=== PATIENT | female | born 1945 | race Caucasian/White ===

== ENCOUNTER 2023-01-06 12:26 | Emergency (ER) | payer MEDICARE, OTHER, SELFPAY ==
--- NOTE | ~2023-01-06 | CT_ITS ---
EXAMINATION: CT HEAD WITHOUT CONTRAST CT CERVICAL SPINE WITHOUT CONTRAST CLINICAL INFORMATION: Head trauma. Hematoma. COMPARISON: None available. TECHNIQUE: Contiguous axial imaging was performed from the skull base to vertex without intravenous administration of contrast. Contiguous axial imaging was performed from the upper chest through the skull base without intravenous administration of contrast. Coronal and sagittal reformats were obtained at the acquisition workstation. This CT examination was performed using dose optimization techniques as appropriate, variously including the following: *Automated exposure control. *Adjustment of mA and/or kV according to patient size (this includes techniques or standardized protocols for targeted exams where dose is matched to indication/reason for exam; i.e. extremities or head). *Use of iterative reconstruction technique. DLP: 962 mGy-cm FINDINGS: Head: There is no evidence of acute intracranial hemorrhage or edematous territorial infarction. Pimentel-white matter differentiation is preserved. Confluent hypoattenuation in the periventricular and deep white matter. Proportional prominence of the ventricles and sulcal spaces without evidence of obstructive hydrocephalus. No abnormal mass effect or midline shift. No extra-axial fluid collections. Calcific atherosclerotic disease of the intracranial internal carotid arteries. No hyperdense vessel sign. There is a 1.4 cm soft tissue hematoma along the left aspect of the frontal bone and left supraorbital ridge. No associated acute osseous abnormalities. The mastoid air cells and visualized paranasal sinuses are clear. Moderate degenerative arthropathy of the temporomandibular joints. Bilateral lens extractions. Cervical Spine: Moderate retrosubluxation of C2 with respect to the skull base with 0.3 cm basilar invagination. The atlantooccipital articulations remain well aligned. Chronic appearing advanced degeneration of the left atlantoaxial articulation. Mild rightward translation of atlas on the axis. Moderate to advanced degenerative arthropathy of the atlantodental articulation. Moderate degenerative anterolisthesis of C2 on C3. Moderate degenerative stepwise retrolistheses of C3-C6. Moderate degenerative stepwise anterolistheses from T1-T3. No evidence of acute fracture or traumatic subluxation. The vertebral body heights are well-maintained. Advanced degenerative disc disease from C2-T2. Mild stenosis of the foramen magnum. There appears to at least moderate spinal canal stenoses from C1-C7. Facet and uncovertebral joint arthropathy leads osseous encroachment on the neural foramina from C2-T2. There is no prevertebral soft tissue swelling. The thyroid gland and remaining cervical soft tissues are within normal limits. The lung apices demonstrate no abnormalities. Partially visualized posterior fusion hardware of the thoracic spine. CT/CT cervical spine wo IV con IMPRESSION: 1. No evidence of acute intracranial hemorrhage or edematous territorial infarction. 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 2. No evidence of acute fracture or traumatic subluxation of the cervical spine. 3. Advanced multilevel degenerative spondyloarthropathy of the cervical spine as described in detail above. Most notably on this limited exam without intrathecal contrast, there appears to be at least moderate spinal canal stenoses from C1-C7. 4. Small moderate left frontal scalp hematoma without associated osseous abnormalities.
[2023-01-06 12:34] VITALS: BP 130/64; BP 133/66; PULSE 78; PULSE 81; RESP 16; TEMP 36.8; O2SAT 96; O2SAT 99; BMI 24.9
[2023-01-06 12:44] VITALS: BP 130/64; PULSE 86
--- NOTE | 2023-01-06 12:46 | ED_ITS ---
HPI - Fall General Chief Complaint: Fall Stated Complaint: DIZZY W/FALL,BUMP L FOREHEAD,+CCOLLAR Time Seen by Provider: 01/06/23 12:35 Source: patient and EMS Mode of arrival: EMS Limitations: altered mental status History of Present Illness HPI Narrative: witnessed trip and fall in a parking lot, no LOC, no on blood thinners complaint: fall Onset (ago): minute(s) Fall from: standing Fall witnessed: yes, by family Place fall occurred: street Loss of consciousness: none Prolonged down time: no Context: tripped/slipped Related Data Allergies Allergy/AdvReac Type Severity Reaction Status Date / Time No Known Allergies Allergy Verified 01/06/23 12:43 Review of Systems Review of Systems: Yes all other systems are reviewed and are negative Neurologic: Denies Sensory deficit (Neuro) [facility] Social History Social History Alcohol intake: current Alcohol intake frequency: a few times a week Smoked in Last 30 Days: No Use of substances other than those prescribed or required for medical reasons: No Advance Directives: No Advance Directives Information Provided: Yes Physical Exam Vital Signs: Vital Signs: Last Vital Signs Temp 97.9 F 01/06/23 15:07 Pulse 70 01/06/23 15:07 Resp 16 01/06/23 15:07 BP 137/62 01/06/23 15:07 Pulse Ox 99 01/06/23 15:07 O2 Del Method Room Air 01/06/23 15:07 BMI result Body Mass Index 24.9 Const: Other: large left frontal hematoma with laceration Nutritional Appearance: average body habitus Orientation/consciousness: oriented to person Limitations: no limitations HEENT: Head: Yes normal to inspection Ears: external ears normal General nose exam: Normal external nose present Mouth: Normal oral and palatal mucosa present and oropharynx normal Throat: Yes posterior oropharynx normal Eyes: General: appearance normal, both eyes and all related structures Neck: Other: supple Neck: Yes normal visual inspection Chest: Chest palpation & inspection: normal inspection of the chest Resp: Auscultation: clear to auscultation bilaterally Cardio: Jugular venous distension: no JVD Rate: regular rate Rhythm: regular rhythm Heart sounds: S1 normal heart sound present and S2 normal heart sound present GI: Inspection: Yes normal to inspection Palpation (GI): Soft to palpation, nontender and No hepatosplenomegaly present Auscultation: normal bowel sounds : General: Yes no CVA tenderness Back/Spine/Pelvis: Back: no CVA tenderness Skin: Other: stellate laceration left frontal area complex Neuro: General: oriented to person Cranial nerves: Yes CN's II-XII intact bilaterally Motor exam (neuro): 5/5 motor strength present throughout Sensory Exam: No Sensory deficit (Neuro) Extrem: General: Yes normal to inspection Psych: Other: patient is pleasant with advanced dementia Course Reevaluation(s) Reevaluation #1: patient with no bleed or cspine fracture will dc home Time: 15:47 Medications Administered Discontinued Medications Generic Name Dose Route Start Last Admin Trade Name Freq PRN Reason Stop Dose Admin Diphtheria/Tetanus/Acell Pertussis 0.5 ml 01/06/23 12:52 01/06/23 13:47 Diphth,Pertus(Acell),Tet Adult 0.5 Ml Syringe IM 01/06/23 12:53 0.5 ml .ONCE ONE Administration Lidocaine/Epinephrine 10 ml 01/06/23 15:14 01/06/23 15:25 Lidocaine Hcl 1%/Epi 1:100,000 10 Ml Vial SUBCUT 01/06/23 15:15 10 ml ONCE ONE Administration Procedures Procedure Narrative Procedure Narrative: Patient prepped and draped in sterile fashion, 1% lidocaine with epi used for anesthesia, wound irrigated under pressure with saline, closed with 6-0 nylon x 6. Patient tolerated procedure well. Medical Decision Making Differential Diagnosis Differential Diagnoses: The differential diagnosis associated with the presentation includes (cerebral bleed, cervical fracture, facial laceration) Admission/Observation Consideration of admission/observation: Escalation of care including ad mission/observation considered (upon arrival patient was considered for admission) Lab Data MDM Lab Attestation statement: I reviewed the patient's lab results. (slight anemia was noted) 01/06/23 13:45 01/06/23 13:45 Labs: Lab Results 01/06/23 01/06/23 Range/Units 13:45 13:45 WBC 8.6 (4.8-10.8) X10*3/uL RBC 3.21 L (4.20-5.50) X10*6/uL Hgb 10.6 L (12.0-16.0) g/dl Hct 32.6 L (37.0-47.0) % MCV 101.6 H (80.0-98.0) fL MCH 33.0 (27.0-33.0) pg MCHC 32.5 (31.0-35.0) g/dl RDW 12.7 (11.0-16.0) % Plt Count 293 (160-400) X10*3/uL MPV 10.7 (9.4-12.3) fL Immature Gran % (Auto) 0.2 (0.0-0.4) % Neut % (Auto) 60.2 (45-73) % Lymph % (Auto) 26.5 (20-40) % [place] % (Auto) 8.2 (2-11) % Eos % (Auto) 3.5 (0-4) % Baso % (Auto) 1.4 (0-2) % Lymph # (Auto) 2.3 (1.2-4.9) X10*3/uL [place] # (Auto) 0.7 (0.1-1.2) X10*3/uL Eos # (Auto) 0.3 (0.0-0.4) X10*3/uL Baso # (Auto) 0.1 (0.0-0.2) X10*3/uL Abs Immat Gran (auto) 0.02 (0.00-0.03) X10*3/uL Absolute Neuts (auto) 5.1 (2.0-8.3) x10*3/uL Absolute Nucleated RBC 0.000 (0.0-0.012) X10*3/uL Nucleated RBC % (auto) 0.0 (0.0-0.2) /100WBC Sodium 140 (135-145) mmol/L Potassium 5.0 (3.3-5.1) mmol/L Chloride 108 (96-108) mmol/L Carbon Dioxide 26 (22-29) mmol/L Anion Gap 11 L (12-20) BUN 22 H (9-16) mg/dL Creatinine 1.09 (0.5-1.4) mg/dL Estim Creat Clear Calc 38.3 Estimated GFR 49 Random Glucose 89 (60-115) mg/dL Calcium 9.3 (8.4-10.2) mg/dL Independent Interpretation I performed an independent interpretation of an: CT Scan (brain: no bleed Cervical: question of fracture and degenerative disease) Radiology Impression Discussion of test interpretation with radiology: I have reviewed the rad iologist's reading. (cervical: there is no fracture just djd) Independent Historian Clinical information obtained from an independent historian. History obtained f rom or confirmed by: Friend and EMS Tests considered The following testing was considered but not selected: CT of chest and abdomen was considered but there was no evidence of chest pain or abdominal pain Prescription Management I considered prescription management with: Pain Medication (considered narcotics but patient with advanced dementia) Chronic Conditions Patient?s care impacted by: Other (dementia) Discharge Plan Discharge Clinical Impression: Contusion of head, Facial laceration Patient Disposition: Home, Self-Care Instructions: Laceration (ED) Additional Instructions: suture removal in 5 days Referrals: Dorita Rosario MD [Primary Care Provider] - 5 days
[2023-01-06] MEDS: Diphth,Pertus(ACell),Tet Adult 0.5 ML SYRINGE IM (13:47)
[2023-01-06 13:49] LABS: MANUAL DIFF FLAG NO
[2023-01-06 13:52] LABS: Basophils Absolute Auto 0.1 X10*3/uL (0.0-0.2); Basophils Percent Auto 1.4 % (0-2); Eosinophils Absolute Auto 0.3 X10*3/uL (0.0-0.4); Eosinophils Percent Auto 3.5 % (0-4); Hematocrit 32.6 % (37.0-47.0); Hemoglobin 10.6 g/dl (12.0-16.0); Imm Gran Abs Auto 0.02 X10*3/uL (0.00-0.03); Imm Gran Pct Auto 0.2 % (0.0-0.4); Lymphocytes Absolute Auto 2.3 X10*3/uL (1.2-4.9); Lymphocytes Percent Auto 26.5 % (20-40); Mean Corpuscular HGB Conc 32.5 g/dl (31.0-35.0); Mean Corpuscular Volume 101.6 fL (80.0-98.0); Mean Platelet Volume 10.7 fL (9.4-12.3); Monocytes Absolute Auto 0.7 X10*3/uL (0.1-1.2); Monocytes Percent Auto 8.2 % (2-11); Neutrophils Absolute Auto 5.1 x10*3/uL (2.0-8.3); Neutrophils Percent Auto 60.2 % (45-73); Platelet Count 293 X10*3/uL (160-400); Red Blood Count 3.21 X10*6/uL (4.20-5.50); Red Cell Distribution Width 12.7 % (11.0-16.0); White Blood Count 8.6 X10*3/uL (4.8-10.8)
[2023-01-06 14:03] LABS: Anion Gap 11 (12-20); Blood Urea Nitrogen 22 mg/dL (9-16); Calcium 9.3 mg/dL (8.4-10.2); Carbon Dioxide 26 mmol/L (22-29); Chloride 108 mmol/L (96-108); Creatinine Clr Calc Pharmacy 38.3; Estimated Glomerular Filt Rate 49; Glucose Random 89 mg/dL (60-115); Sodium 140 mmol/L (135-145)
[2023-01-06 15:07] VITALS: BP 137/62; PULSE 70; RESP 16; TEMP 36.6; O2SAT 99
[2023-01-06] MEDS: Lidocaine HCl 1%/Epi 1:100,000 10 ML VIAL SUBCUT (15:25)
== END 2023-01-06 16:42 | disposition home or self-care (01) ==
PROVIDERS: Emergency Provider Emergency Medicine; PCP Internal Medicine
DX: S01.81XA Laceration without foreign body of other part of head, initial encounter (principal); S00.83XA Contusion of other part of head, initial encounter; W01.0XXA Fall on same level from slipping, tripping and stumbling without subsequent striking against object, initial encounter; Y93.01 Activity, walking, marching and hiking; Y92.481 Parking lot as the place of occurrence of the external cause; Y99.9 Unspecified external cause status
CPT/HCPCS: 12011; 36415; 70450; 72125; 80048; 85025; 90471; 90715; 99284

== ENCOUNTER 2023-01-16 20:23 | Observation (INO) | payer MEDICARE, OTHER, SELFPAY ==
--- NOTE | ~2023-01-16 | CT_ITS ---
EXAMINATION: CT HEAD WITHOUT CONTRAST CLINICAL INFORMATION: Confusion. Acute mental status change. Word finding difficulties. COMPARISON: Previous head CT 01/06/2023 TECHNIQUE: Contiguous axial imaging was performed from the skull base to vertex without intravenous administration of contrast. This CT examination was performed using dose optimization techniques as appropriate, variously including the following: *Automated exposure control *Adjustment of mA and/or kV according to patient size (this includes techniques or standardized protocols for targeted exams where dose is matched to indication/reason for exam; i.e. extremities or head) *Use of iterative reconstruction technique DLP: 664 mGy-cm FINDINGS: There is no evidence for an extra axial collection. There is no evidence of intra-axial or extra-axial hemorrhage. The ventricles and extra-axial CSF spaces are prominent suggestive of generalized atrophy. There is nonspecific periventricular white matter disease. No mass, mass effect or infarct. No skull fracture. Degenerative changes at the temporomandibular joints. Interval decrease in size in the scalp hematoma over the left frontal bone and superior left orbit. CT/CT head/brain wo IV con IMPRESSION: No acute findings. Generalized atrophy and nonspecific periventricular white matter disease.
--- NOTE | ~2023-01-16 | XR_ITS ---
EXAMINATION: XR ABDOMEN KUB CLINICAL INDICATION: MRI screening COMPARISON: None available. TECHNIQUE: AP view of the abdomen. FINDINGS: Postsurgical changes to the lumbar spine with posterior rods and interpedicular screws from L2 to L5 and laminectomy. Right hip replacement. Degenerative changes of the spine and left hip joint. Normal bowel gas pattern. No free air. No soft tissue calcifications. Question old trauma to the left iliac crest. XR/XR abdomen 1V IMPRESSION: Postsurgical changes to the lumbar spine from L2 to L5 and right hip replacement.
--- NOTE | ~2023-01-16 | MR_ITS ---
EXAMINATION: MR BRAIN WITHOUT CONTRAST CLINICAL INFORMATION: Evaluate for stroke. Acute mental status change. COMPARISON: Head CT dated 01/16/2023. TECHNIQUE: Multiplanar, multisequence imaging of the brain was performed without contrast. FINDINGS: No diffusion abnormalities are identified to suggest an acute infarct. No mass effect or midline shift is seen. Moderate chronic white matter microangiopathy noted with moderate diffuse brain parenchymal volume loss and ex vacuo dilatation of the ventricles. No extra-axial fluid collections are seen. There is a small chronic lacunar infarct in the left cerebellar hemisphere. Mild chronic small vessel ischemic changes noted in the amy. The gradient refocused acquisition demonstrates no pathologic magnetic susceptibility artifact to indicate underlying acute or chronic blood products. The craniovertebral junction, marrow signal, and midline structures are normal. The major intracranial flow voids at the level of the [place] are preserved. The dural venous sinus flow voids are maintained. The mastoid air cells and paranasal sinuses are well aerated. There is a reversal of the normal cervical lordosis with significant multilevel spondylosis and hypertrophic facet arthropathy visible on the sagittal T1 FLAIR-weighted acquisition. Advanced degenerative changes evident at the C1-C2 level. Findings also better evaluated on a CT study from 01/06/2023. MR/MR head/brain wo con IMPRESSION: Limited study with motion artifacts. No acute intracranial process. Moderate chronic white matter microangiopathy and moderate diffuse brain parenchymal volume loss.
--- NOTE | ~2023-01-16 | XR_ITS ---
EXAMINATION: XR CHEST CLINICAL INFORMATION: Acute confusion COMPARISON: None available. TECHNIQUE: Frontal view of the chest was obtained. FINDINGS: The cardiac and mediastinal contours are unremarkable. There is round increased opacity over the left lateral mid chest and chest wall. This may be related to breast prosthesis is a projects outside the wall into the soft tissues. The lungs are otherwise clear. No pleural effusion or pneumothorax. Degenerative changes of the thoracic spine. Postsurgical changes of the lumbar spine. Surgical clips in the left breast/axilla. Old left rib fractures. XR/XR chest 1V IMPRESSION: No evidence for acute disease in the chest.
[2023-01-16 20:31] VITALS: BP 110/72; PULSE 86; RESP 18; TEMP 37.2; O2SAT 99; BMI 23.3
--- NOTE | 2023-01-16 20:38 | ECG_ITS ---
Test Reason : AMS Blood Pressure : / mmHG Vent. Rate : 088 BPM Atrial Rate : 088 BPM P-R Int : 188 ms QRS Dur : 096 ms QT Int : 372 ms P-R-T Axes : 071 045 051 degrees QTc Int : 450 ms Normal sinus rhythm with sinus arrhythmia Cannot rule out Anterior infarct , age undetermined Abnormal ECG No previous ECGs available Referred By: Nikita Pete Electronically Signed By:JOSUE MCDONOUGH
[2023-01-16 20:41] LABS: Glucose, Whole Blood 85 mg/dL (60-115)
--- NOTE | 2023-01-16 21:20 | ED.AMS ---
HPI - Altered Mental Status General Chief Complaint: Altered Mental Status Stated Complaint: STROKE ALERT Time Seen by Provider: 01/16/23 20:37 Source: EMS Mode of arrival: EMS Limitations: altered mental status History of Present Illness HPI narrative: 77-year-old female presents for mental status changes. Changes include confusion, difficulty speaking. Patient was diagnosed with urinary tract infection earlier today. She has also had multiple falls within the past week including head injury. About a week ago she did have a head injury and had a CT scan which was reportedly negative. She has significant bruising noted. Patient denies any headache, nausea, vomiting. There have been no reports of fevers or chills. Patient is not on any blood thinning medications. Patient was last seen normal this morning at approximately 9:00 a.m.. Patient has no reported history of similar findings. Her symptoms are described as severe. There is no clear relieving or exacerbating features. Related Data Allergies Allergy/AdvReac Type Severity Reaction Status Date / Time No Known Allergies Allergy Verified 01/06/23 12:43 Review of Systems Review of Systems: CONSTITUTIONAL: Denies weight loss, fever and chills. HEENT: Denies changes in vision and hearing. RESPIRATORY: Denies SOB and cough. CV: Denies palpitations no CP. GI: Denies abdominal pain, nausea, vomiting and diarrhea. : Denies dysuria and urinary frequency. MSK: Denies myalgia and joint pain. SKIN: Denies rash and pruritus. NEUROLOGICAL: Denies headache and syncope. PSYCHIATRIC: Denies recent changes in mood. Denies anxiety and depression. All other ROS are negative unless in HPI PMFSH Social History Social History Alcohol intake: never Smoked in Last 30 Days: No Use of substances other than those prescribed or required for medical reasons: No Advance Directives: No Advance Directives Information Provided: No Physical Exam ED Vital Signs: Vital Signs - 24 hr 01/16/23 20:31 Temperature 98.9 F Pulse Rate 86 Respiratory Rate 18 Blood Pressure 110/72 Pulse Oximetry 99 Oxygen Delivery Method Room Air BMI result Body Mass Index 23.3 GEN: Well developed, no acute distress, alert, oriented x1 HEENT: Normocephalic, significant facial ecchymoses, normal external ears, nose appears normal, no oropharyngeal edema or exudates Eyes: Normal to appearance Neck: Supple, no lymphadenopathy Respiratory: Talks in complete sentences, no respiratory distress, clear to auscultation bilaterally Cardiovascular: Regular rate and rhythm, no murmurs rubs or gallops Abdomen: Soft, nontender, nondistended, no guarding, no rebound Back: No CVA tenderness Extremities: No clubbing cyanosis or edema Neurologic: No focal neurologic deficits, cranial nerves 2-12 intact, strength is 5/5 bilaterally Skin: No rash NIH Stroke Scale Internal: Initial- Upon Arrival Time: 21:54 Level of Consciousness: Alert Level of Consciousness Questions: Answers both questions correctly Level of Consciousness Commands: Performs both tasks correctly Best Gaze: Normal Visual: No visual loss Facial Palsy: Normal Motor Arm (Right): No drift Motor Arm (Left): No drift Motor Leg (Right): No drift Motor Leg (Left): No drift Limb Ataxia: Absent Sensory: Normal Best Language: Mild to moderate aphasia Dysarthia: Normal Extinction and Inattention: No abnormality Score: 1 Course Course Course Narrative: Workup is complete. Etiology of patient's confusion is not entirely clear. She has no evidence of dysarthria. She does not appear to have any word-finding difficulty but remains confused, tremulous and able to follow some commands. Will admit the patient. I did attempt to contact family however there are no family numbers on file here. There is no family in patient room Medical Decision Making Medical Decision Making MDM Narrative: 77-year-old female presents with confusion and word-finding difficulties. Patient has significant facial ecchymoses on exam. Patient has no focal weakness. She does appear to either have confusion with speaking or word-finding difficulties. Is unclear which it is. She does not have any dysarthria. She is able to follow commands. She has no pronator drift. Patient is outside the window for tPA Differential Diagnosis Differential Diagnoses: The differential diagnosis associated with the presentation includes (Stroke, confusion, sepsis, infection, intoxication) Admission/Observation Consideration of admission/observation: Escalation of care including admission/observation considered Consult Healthcare Provider Management of the patient was discussed with: Hospitalist Lab Data [facility] Lab Attestation statement: I reviewed the patient's lab results. 01/16/23 20:55 01/16/23 20:55 Labs: Lab Results 01/16/23 01/16/23 01/16/23 Range/Units 20:30 20:55 20:55 WBC 7.4 (4.8-10.8) X10*3/uL RBC 3.25 L (4.20-5.50) X10*6/uL Hgb 10.7 L (12.0-16.0) g/dl Hct 32.0 L (37.0-47.0) % MCV 98.5 H (80.0-98.0) fL MCH 32.9 (27.0-33.0) pg MCHC 33.4 (31.0-35.0) g/dl RDW 13.2 (11.0-16.0) % Plt Count 277 (160-400) X10*3/uL MPV 10.6 (9.4-12.3) fL Immature Gran % (Auto) 0.3 (0.0-0.4) % Neut % (Auto) 54.4 (45-73) % Lymph % (Auto) 31.1 (20-40) % [place] % (Auto) 9.2 (2-11) % Eos % (Auto) 4.3 H (0-4) % Baso % (Auto) 0.7 (0-2) % Lymph # (Auto) 2.3 (1.2-4.9) X10*3/uL [place] # (Auto) 0.7 (0.1-1.2) X10*3/uL Eos # (Auto) 0.3 (0.0-0.4) X10*3/uL Baso # (Auto) 0.1 (0.0-0.2) X10*3/uL Abs Immat Gran (auto) 0.02 (0.00-0.03) X10*3/uL Absolute Neuts (auto) 4.0 (2.0-8.3) x10*3/uL Absolute Nucleated RBC 0.000 (0.0-0.012) X10*3/uL Nucleated RBC % (auto) 0.0 (0.0-0.2) /100WBC PT 10.2 L (11.1-13.3) SEC INR 0.8 L (0.9-1.1) APTT 29.1 (26.0-36.4) SEC Sodium (135-145) mmol/L Potassium (3.3-5.1) mmol/L Chloride (96-108) mmol/L Carbon Dioxide (22-29) mmol/L Anion Gap (12-20) BUN (9-16) mg/dL Creatinine (0.5-1.4) mg/dL Estim Creat Clear Calc Estimated GFR POC Glucose 85 (60-115) mg/dL Random Glucose (60-115) mg/dL Lactic Acid (0.5-2.0) mmol/L Calcium (8.4-10.2) mg/dL Total Bilirubin (0.0-1.0) mg/dL AST (5-31) U/L ALT (0-31) U/L Alkaline Phosphatase (39-117) U/L Total Protein (6.5-8.0) g/dL Albumin (3.5-5.0) g/dL TSH (0.32-4.0) uIU/mL Urine Color Urine Appearance Urine pH (5.0-9.0) Ur Specific [place] (1.005-1.025) Urine Protein (Neg-Trace) mg/dL Urine Glucose (UA) (Negative) mg/dL Urine Ketones (Negative) mg/dL Urine Blood (Negative) Urine Nitrite (Negative) Ur Leukocyte Esterase (Negative) Urine RBC (0-2) /HPF Urine WBC (0-5) /HPF Ur Squamous Epith Cells (0-2) /HPF Urine Bacteria (None Seen) Hyaline Casts (0-2) /LPF Urine Opiates Screen (Not Detect) Urine Fentanyl Screen (Not Detect) Ur Barbiturates Screen (Not Detect) Ur Phencyclidine Scrn (Not Detect) Ur Amphetamines Screen (Not Detect) U Benzodiazepines Scrn (Not Detect) Urine Cocaine Screen (Not Detect) U Marijuana (THC) Screen (Not Detect) Ethyl Alcohol mg/dL COVID-19 ([facility]) (Negative) COVID-19 Clin Com 01/16/23 01/16/23 01/16/23 Range/Units 20:55 20:55 20:55 WBC (4.8-10.8) X10*3/uL RBC (4.20-5.50) X10*6/uL Hgb (12.0-16.0) g/dl Hct (37.0-47.0) % MCV (80.0-98.0) fL MCH (27.0-33.0) pg MCHC (31.0-35.0) g/dl RDW (11.0-16.0) % Plt Count (160-400) X10*3/uL MPV (9.4-12.3) fL Immature Gran % (Auto) (0.0-0.4) % Neut % (Auto) (45-73) % Lymph % (Auto) (20-40) % [place] % (Auto) (2-11) % Eos % (Auto) (0-4) % Baso % (Auto) (0-2) % Lymph # (Auto) (1.2-4.9) X10*3/uL [place] # (Auto) (0.1-1.2) X10*3/uL Eos # (Auto) (0.0-0.4) X10*3/uL Baso # (Auto) (0.0-0.2) X10*3/uL Abs Immat Gran (auto) (0.00-0.03) X10*3/uL Absolute Neuts (auto) (2.0-8.3) x10*3/uL Absolute Nucleated RBC (0.0-0.012) X10*3/uL Nucleated RBC % (auto) (0.0-0.2) /100WBC PT (11.1-13.3) SEC INR (0.9-1.1) APTT (26.0-36.4) SEC Sodium 137 (135-145) mmol/L Potassium 4.9 (3.3-5.1) mmol/L Chloride 105 (96-108) mmol/L Carbon Dioxide 20 L (22-29) mmol/L Anion Gap 17 (12-20) BUN 32 H (9-16) mg/dL Creatinine 1.46 H (0.5-1.4) mg/dL Estim Creat Clear Calc 28.6 Estimated GFR 35 POC Glucose (60-115) mg/dL Random Glucose 80 (60-115) mg/dL Lactic Acid 1.1 (0.5-2.0) mmol/L Calcium 9.4 (8.4-10.2) mg/dL Total Bilirubin 0.2 (0.0-1.0) mg/dL AST 22 (5-31) U/L ALT 13 (0-31) U/L Alkaline Phosphatase 94 (39-117) U/L Total Protein 6.9 (6.5-8.0) g/dL Albumin 4.1 (3.5-5.0) g/dL TSH 0.09 L (0.32-4.0) uIU/mL Urine Color Urine Appearance Urine pH (5.0-9.0) Ur Specific [place] (1.005-1.025) Urine Protein (Neg-Trace) mg/dL Urine Glucose (UA) (Negative) mg/dL Urine Ketones (Negative) mg/dL Urine Blood (Negative) Urine Nitrite (Negative) Ur Leukocyte Esterase (Negative) Urine RBC (0-2) /HPF Urine WBC (0-5) /HPF Ur Squamous Epith Cells (0-2) /HPF Urine Bacteria (None Seen) Hyaline Casts (0-2) /LPF Urine Opiates Screen (Not Detect) Urine Fentanyl Screen (Not Detect) Ur Barbiturates Screen (Not Detect) Ur Phencyclidine Scrn (Not Detect) Ur Amphetamines Screen (Not Detect) U Benzodiazepines Scrn (Not Detect) Urine Cocaine Screen (Not Detect) U Marijuana (THC) Screen (Not Detect) Ethyl Alcohol < 10 mg/dL COVID-19 ([place]) Negative (Negative) COVID-19 Clin Com See Note 01/16/23 01/16/23 Range/Units 20:55 20:55 WBC (4.8-10.8) X10*3/uL RBC (4.20-5.50) X10*6/uL Hgb (12.0-16.0) g/dl Hct (37.0-47.0) % MCV (80.0-98.0) fL MCH (27.0-33.0) pg MCHC (31.0-35.0) g/dl RDW (11.0-16.0) % Plt Count (160-400) X10*3/uL MPV (9.4-12.3) fL Immature Gran % (Auto) (0.0-0.4) % Neut % (Auto) (45-73) % Lymph % (Auto) (20-40) % [place] % (Auto) (2-11) % Eos % (Auto) (0-4) % Baso % (Auto) (0-2) % Lymph # (Auto) (1.2-4.9) X10*3/uL [place] # (Auto) (0.1-1.2) X10*3/uL Eos # (Auto) (0.0-0.4) X10*3/uL Baso # (Auto) (0.0-0.2) X10*3/uL Abs Immat Gran (auto) (0.00-0.03) X10*3/uL Absolute Neuts (auto) (2.0-8.3) x10*3/uL Absolute Nucleated RBC (0.0-0.012) X10*3/uL Nucleated RBC % (auto) (0.0-0.2) /100WBC PT (11.1-13.3) SEC INR (0.9-1.1) APTT (26.0-36.4) SEC Sodium (135-145) mmol/L Potassium (3.3-5.1) mmol/L Chloride (96-108) mmol/L Carbon Dioxide (22-29) mmol/L Anion Gap (12-20) BUN (9-16) mg/dL Creatinine (0.5-1.4) mg/dL Estim Creat Clear Calc Estimated GFR POC Glucose (60-115) mg/dL Random Glucose (60-115) mg/dL Lactic Acid (0.5-2.0) mmol/L Calcium (8.4-10.2) mg/dL Total Bilirubin (0.0-1.0) mg/dL AST (5-31) U/L ALT (0-31) U/L Alkaline Phosphatase (39-117) U/L Total Protein (6.5-8.0) g/dL Albumin (3.5-5.0) g/dL TSH (0.32-4.0) uIU/mL Urine Color Dark Yellow Urine Appearance Clear Urine pH 5.5 (5.0-9.0) Ur Specific [place] >= 1.030 H (1.005-1.025) Urine Protein Negative (Neg-Trace) mg/dL Urine Glucose (UA) Negative (Negative) mg/dL Urine Ketones Trace (Negative) mg/dL Urine Blood Negative (Negative) Urine Nitrite Negative (Negative) Ur Leukocyte Esterase Trace H (Negative) Urine RBC 0-2 (0-2) /HPF Urine WBC 0-5 (0-5) /HPF Ur Squamous Epith Cells 6-10 (0-2) /HPF Urine Bacteria None Seen (None Seen) Hyaline Casts >20 (0-2) /LPF Urine Opiates Screen Not Detected (Not Detect) Urine Fentanyl Screen Not Detected (Not Detect) Ur Barbiturates Screen Not Detected (Not Detect) Ur Phencyclidine Scrn Not Detected (Not Detect) Ur Amphetamines Screen Not Detected (Not Detect) U Benzodiazepines Scrn Not Detected (Not Detect) Urine Cocaine Screen Not Detected (Not Detect) U Marijuana (THC) Screen Not Detected (Not Detect) Ethyl Alcohol mg/dL COVID-19 ([facility]) (Negative) COVID-19 Clin Com Independent Interpretation I performed an independent interpretation of an: EKG (NSR, normal intervals, No STEMI), Plain X-Ray (Chest: No acute cardiopulmonary disease) and CT Scan (Head: NAD) Radiology Impression Discussion of test interpretation with radiology: I have reviewed the radiologist's reading. Radiologist Impression: XR/XR chest 1V IMPRESSION: No evidence for acute disease in the chest. ? Dictated By: Anna Merino MD Signed By: <Electronically signed by Anna Merino MD in OV> 01/16/23 [id number] Independent Historian Clinical information obtained from an independent historian. History obtained from or confirmed by: EMS Prescription Management I considered prescription management with: Antibiotic Discharge Plan Discharge Clinical Impression: Altered mental status Patient Disposition: Still a Patient
[2023-01-16 21:22] LABS: MANUAL DIFF FLAG NO
[2023-01-16 21:25] LABS: Basophils Absolute Auto 0.1 X10*3/uL (0.0-0.2); Basophils Percent Auto 0.7 % (0-2); Eosinophils Absolute Auto 0.3 X10*3/uL (0.0-0.4); Eosinophils Percent Auto 4.3 % (0-4); Hemoglobin 10.7 g/dl (12.0-16.0); Imm Gran Abs Auto 0.02 X10*3/uL (0.00-0.03); Imm Gran Pct Auto 0.3 % (0.0-0.4); Lymphocytes Absolute Auto 2.3 X10*3/uL (1.2-4.9); Lymphocytes Percent Auto 31.1 % (20-40); Mean Corpuscular HGB Conc 33.4 g/dl (31.0-35.0); Mean Corpuscular Hemoglobin 32.9 pg (27.0-33.0); Mean Corpuscular Volume 98.5 fL (80.0-98.0); Mean Platelet Volume 10.6 fL (9.4-12.3); Monocytes Absolute Auto 0.7 X10*3/uL (0.1-1.2); Monocytes Percent Auto 9.2 % (2-11); Neutrophils Percent Auto 54.4 % (45-73); Platelet Count 277 X10*3/uL (160-400); Red Blood Count 3.25 X10*6/uL (4.20-5.50); Red Cell Distribution Width 13.2 % (11.0-16.0); White Blood Count 7.4 X10*3/uL (4.8-10.8)
[2023-01-16 21:39] LABS: Lactic Acid 1.1 mmol/L (0.5-2.0)
[2023-01-16 21:46] LABS: INTERNATIONAL NORM RATIO 0.8 (0.9-1.1); Prothrombin Time 10.2 SEC (11.1-13.3)
[2023-01-16 21:48] LABS: Partial Thromboplastin Time 29.1 SEC (26.0-36.4)
[2023-01-16 21:49] LABS: Alanine Aminotransferase 13 U/L (0-31); Albumin Level 4.1 g/dL (3.5-5.0); Alkaline Phosphatase 94 U/L (39-117); Anion Gap 17 (12-20); Aspartate Amino Transferase 22 U/L (5-31); Bilirubin Total 0.2 mg/dL (0.0-1.0); Blood Urea Nitrogen 32 mg/dL (9-16); Calcium 9.4 mg/dL (8.4-10.2); Carbon Dioxide 20 mmol/L (22-29); Chloride 105 mmol/L (96-108); Creatinine Clr Calc Pharmacy 28.6; Estimated Glomerular Filt Rate 35; Glucose Random 80 mg/dL (60-115); Potassium 4.9 mmol/L (3.3-5.1); Sodium 137 mmol/L (135-145); Total Protein 6.9 g/dL (6.5-8.0)
[2023-01-16 21:55] LABS: COVID-19 Test Negative (Negative); IDNOW Serial# BCCEAD1C
[2023-01-16 22:04] LABS: TSH reflex Free T4 0.09 uIU/mL (0.32-4.0)
[2023-01-16 22:10] LABS: Appearance Urine Clear; Color Urine Dark Yellow; Glucose Urine UA Negative (Negative); Leukocyte Esterase Urine Trace (Negative); Nitrite Urine Negative (Negative); PH 5.5 (5.0-9.0); Specific Gravity - Urine >= 1.030 (1.005-1.025); UMIC TRIGGER UACC YES; Urine Blood Negative (Negative); Urine Ketones Trace mg/dL (Negative); Urine Protein Negative (Neg-Trace)
[2023-01-16 22:24] LABS: RBC Urine 0-2 /HPF (0-2)
[2023-01-16 22:25] LABS: Ethanol < 10 mg/dL
[2023-01-16 22:30] LABS: Amphetamine Screen Urine Not Detected (Not Detect); Bacteria Urine None Seen (None Seen); Barbiturates, Urine Not Detected (Not Detect); Benzodiazepines Screen Urine Not Detected (Not Detect); Cannabinoid Screen Urine Not Detected (Not Detect); Cocaine Screen Urine Not Detected (Not Detect); Fentanyl, urine Not Detected (Not Detect); Hyaline Casts Urine >20 /LPF (0-2); Opiate Screen Urine Not Detected (Not Detect); Phencyclidine Screen Urine Not Detected (Not Detect); WBC Urine 0-5 /HPF (0-5)
--- NOTE | 2023-01-16 22:44 | P.HPHOSP_ITS ---
History of Present Illness Date of Service: 01/16/23 Chief Complaint: Altered mentation This is a 77-year-old female with pertinent history of mood disorder, essential hypertension, hypothyroidism, gastroesophageal reflux disease who was brought to the emergency department for evaluation of altered mentation. History obtained by ER provider and chart review. Unable to obtain history from the patient. Patient presents for evaluation of confusion and word-finding difficulty. Also with multiple falls over the last 1 week. At the time of my evaluation, patient is only oriented to self. Does not know why she is here. Unable to obtain review of systems. Patient tells me that she has been having multiple episodes of loose stools. Review of Systems Review of Systems: Yes Unobtainable due to mental status PMFSH Medical History Essential hypertension GERD (gastroesophageal reflux disease) Hypothyroidism Mood disorder Pertinent family history: Unable to obtain Social History Household Members: None Housing: Correction Do you presently have visiting nurse or other home services: No Alcohol intake: never Patient Tobacco Use Status: Never used Tobacco Smoked in Last 30 Days: No Use of substances other than those prescribed or required for medical reasons: No Currently Displaying Signs/Symptoms of Drug Intoxication Withdrawal: No Have you been hit, kicked, punched, or otherwise hurt by someone within the past year? If so, by whom?: No Do you feel safe in your current relationship?: No Current Relationship Is there a partner from a previous relationship who is making you feel unsafe now?: No Advance Directives: No Advance Directives Information Provided: No Do you have thoughts of harming others: None Do you have a plan to hurt others: No Plan Recently lost weight without trying: No How much weight loss: Unsure Eating poorly because of decreased appetite: No Nutrition screen score: 2 Nutrition Risks: On aspiration precautions Patient : No Poor oral hygiene: No Meds Allergies Allergy/AdvReac Type Severity Reaction Status Date / Time No Known Allergies Allergy Verified 01/06/23 12:43 Active Medications: Current Medications Acetaminophen (Acetaminophen Supp 650 Mg Supp.Rect) 650 mg SD Q6H PRN PRN Reason: Pain, Mild (Pain Scale 1-3) Enoxaparin Sodium (Enoxaparin Sodium 30 Mg/0.3 Ml Syringe) 30 mg SUBCUT Q24H MIC Ondansetron HCl (Ondansetron Hcl 4 Mg/2 Ml Vial) 4 mg IVPUSH Q8H PRN PRN Reason: Nausea and Vomiting Sodium Chloride (0.9 % Sodium Chloride Flush 3 Ml Syringe) 3 ml IVFLUSH QSHIFT MIC Physical Exam Vital Signs and Narrative: Vital Signs: Last Vital Signs Temp 98.9 F 01/16/23 20:31 Pulse 86 01/16/23 20:31 Resp 18 01/16/23 20:31 BP 110/72 01/16/23 20:31 Pulse Ox 99 01/16/23 20:31 O2 Del Method Room Air 01/16/23 20:31 BMI result Body Mass Index 23.3 Elderly female lying in bed in no distress Neck supple, no JVD Regular rate and rhythm, S1-S2 heard Regular breath sounds bilaterally, no wheezing or crackles appreciated Abdomen soft nontender, no guarding, no rigidity Patient is awake, alert and oriented to self, disoriented to place, time and person ; intermittently following commands, no focal weakness, unable to have a conversation, word-finding difficulty/confusion present Results Labs 01/16/23 20:55 01/16/23 20:55 Labs: Laboratory Results - last 24 hr 01/16/23 01/16/23 01/16/23 20:30 20:55 20:55 MCV 98.5 H MCH 32.9 MCHC 33.4 RDW 13.2 Plt Count 277 MPV 10.6 Immature Gran % (Auto) 0.3 Neut % (Auto) 54.4 Lymph % (Auto) 31.1 Carson % (Auto) 9.2 Eos % (Auto) 4.3 H Baso % (Auto) 0.7 Lymph # (Auto) 2.3 Carson # (Auto) 0.7 Eos # (Auto) 0.3 Baso # (Auto) 0.1 Abs Immat Gran (auto) 0.02 Absolute Neuts (auto) 4.0 Absolute Nucleated RBC 0.000 Nucleated RBC % (auto) 0.0 PT 10.2 L INR 0.8 L APTT 29.1 Anion Gap Estim Creat Clear Calc Estimated GFR POC Glucose 85 Random Glucose Lactic Acid Calcium Total Bilirubin AST ALT Alkaline Phosphatase Total Protein Albumin TSH Urine Color Urine Appearance Urine pH Ur Specific [place] Urine Protein Urine Glucose (UA) Urine Ketones Urine Blood Urine Nitrite Ur Leukocyte Esterase Urine RBC Urine WBC Ur Squamous Epith Cells Urine Bacteria Hyaline Casts Urine Opiates Screen Urine Fentanyl Screen Ur Barbiturates Screen Ur Phencyclidine Scrn Ur Amphetamines Screen U Benzodiazepines Scrn Urine Cocaine Screen U Marijuana (THC) Screen Ethyl Alcohol COVID-19 ([facility]) COVID-19 Clin Com 01/16/23 01/16/23 01/16/23 20:55 20:55 20:55 MCV MCH MCHC RDW Plt Count MPV Immature Gran % (Auto) Neut % (Auto) Lymph % (Auto) Carson % (Auto) Eos % (Auto) Baso % (Auto) Lymph # (Auto) Carson # (Auto) Eos # (Auto) Baso # (Auto) Abs Immat Gran (auto) Absolute Neuts (auto) Absolute Nucleated RBC Nucleated RBC % (auto) PT INR APTT Anion Gap 17 Estim Creat Clear Calc 28.6 Estimated GFR 35 POC Glucose Random Glucose 80 Lactic Acid 1.1 Calcium 9.4 Total Bilirubin 0.2 AST 22 ALT 13 Alkaline Phosphatase 94 Total Protein 6.9 Albumin 4.1 TSH 0.09 L Urine Color Urine Appearance Urine pH Ur Specific [place] Urine Protein Urine Glucose (UA) Urine Ketones Urine Blood Urine Nitrite Ur Leukocyte Esterase Urine RBC Urine WBC Ur Squamous Epith Cells Urine Bacteria Hyaline Casts Urine Opiates Screen Urine Fentanyl Screen Ur Barbiturates Screen Ur Phencyclidine Scrn Ur Amphetamines Screen U Benzodiazepines Scrn Urine Cocaine Screen U Marijuana (THC) Screen Ethyl Alcohol < 10 COVID-19 ([facility]) Negative COVID-19 Clin Com See Note 01/16/23 01/16/23 20:55 20:55 MCV MCH MCHC RDW Plt Count MPV Immature Gran % (Auto) Neut % (Auto) Lymph % (Auto) Carson % (Auto) Eos % (Auto) Baso % (Auto) Lymph # (Auto) Carson # (Auto) Eos # (Auto) Baso # (Auto) Abs Immat Gran (auto) Absolute Neuts (auto) Absolute Nucleated RBC Nucleated RBC % (auto) PT INR APTT Anion Gap Estim Creat Clear Calc Estimated GFR POC Glucose Random Glucose Lactic Acid Calcium Total Bilirubin AST ALT Alkaline Phosphatase Total Protein Albumin TSH Urine Color Dark Yellow Urine Appearance Clear Urine pH 5.5 Ur Specific [place] >= 1.030 H Urine Protein Negative Urine Glucose (UA) Negative Urine Ketones Trace Urine Blood Negative Urine Nitrite Negative Ur Leukocyte Esterase Trace H Urine RBC 0-2 Urine WBC 0-5 Ur Squamous Epith Cells 6-10 Urine Bacteria None Seen Hyaline Casts >20 Urine Opiates Screen Not Detected Urine Fentanyl Screen Not Detected Ur Barbiturates Screen Not Detected Ur Phencyclidine Scrn Not Detected Ur Amphetamines Screen Not Detected U Benzodiazepines Scrn Not Detected Urine Cocaine Screen Not Detected U Marijuana (THC) Screen Not Detected Ethyl Alcohol COVID-19 ([facility]) COVID-19 Clin Com Imaging Radiologist's Impressions: Impressions Chest X-Ray 01/16/23 21:10 IMPRESSION: No evidence for acute disease in the chest. Head CT 01/16/23 21:48 IMPRESSION: No acute findings. Generalized atrophy and nonspecific periventricular white matter disease. Assessment and Plan (1) Altered mental status: Status: Acute (2) ARSENIO (acute kidney injury): Status: Acute Plan This is a 77-year-old female with pertinent history of mood disorder, essential hypertension, hypothyroidism, gastroesophageal reflux disease who was brought to the emergency department for evaluation of altered mentation. #. Acute encephalopathy, unclear etiology. Likely contributed by dehydration as evidenced by ARSENIO and in the setting of GI losses. Cannot rule out CVA. Obtaining MRI to delineate anatomy. Consider Neurology consult. Monitor mentation with IV crystalloid resuscitation. Follow B12 and TSH. NPO pending swallow eval #. Acute kidney injury, stage I, nonoliguric. Likely prerenal. Monitor creatinine and urine output with crystalloid resuscitation. Avoid nephrotoxins #. Diarrhea. C diff negative. Symptomatic treatment for now. GI panel pending #. Mood disorder. Continue home mood stabilizers #. Hypothyroidism. On Synthroid. TSH pending #. Essential hypertension. Hold ARB in the setting of ARSENIO #. Gastroesophageal reflux disease. On PPI Med rec pending DVT prophylaxis: Lovenox Full code. Readdress code status in a.m. Time Spent With Patient Time: Total time managing care of this patient today ____ minutes. Quality Stroke Does the patient have a stroke diagnosis?: No VTE Prior VTE?: No VTE Risk Level:: Medical - moderate - high VTE Device Contraindication: Treatment Not Indicated VTE Drug Contraindication: N/A - Med Ordered
[2023-01-16 22:46] LABS: Free T4 (Free Thyroxine) 1.24 ng/dL (0.71-1.85)
--- NOTE | 2023-01-16 23:48 | PC.NURSE ---
at 2305 pt was found by environmental sitting at the foot of the bed on the floor in stool. pt co of back pain. dr rodrigues called to see the pt and is present. unwitness fall. camera placed in room and curtain is open to staff. pt is talking and states she had to go to the bathroom. pt has been having liquid stool. sample sent off for c-diff check. Saskia haro made aware and is with the pt.
--- NOTE | 2023-01-16 23:56 | PC.NURSE ---
dr rodrigues seen pt. pt also has a camera and yellow alarm box attached to her gown, curtain open. pt is talking in full sentences. no open areas noted.
[2023-01-17] VITALS (7 sets, daily range): BP systolic 107–140; BP diastolic 55–81; PULSE 71–88; RESP 15–20; TEMP 36.1–36.7; O2SAT 84–98; BMI 23.1
[2023-01-17 00:32] LABS: Ammonia 28 umol/L (13-55)
[2023-01-17] MEDS: 0.9 % Sodium Chloride 1,000 ML 999 ML IV (00:44)
[2023-01-17] MEDS: 0.9 % Sodium Chloride Flush 3 ML SYRINGE IVFLUSH ×5 (00:44→23:10)
[2023-01-17 01:02] LABS: CDiff Gene PCR NEGATIVE (Negative)
--- NOTE | 2023-01-17 05:09 | PC.NURSE ---
At 0000 this RN was informed that pt had an unwitnessed fall, found at the base of the bed on the floor by EVS. Per pt she was trying to get to the bathroom, denies headstrike, chest pain, or shortness of breath. No new skin abrasions noted, no extremity deformities, hospitalist present at the bedside for exam, vital signs were stable, camera placed in the room as well as bed alarm, room curtain was also left open for direct line of sight. Pt was reoriented to the call sales and instructed to call when she needs to go to the bathroom.
[2023-01-17 06:15] LABS: MANUAL DIFF FLAG NO
[2023-01-17 06:27] LABS: Basophils Absolute Auto 0.1 X10*3/uL (0.0-0.2); Eosinophils Absolute Auto 0.4 X10*3/uL (0.0-0.4); Eosinophils Percent Auto 4.9 % (0-4); Hematocrit 34.3 % (37.0-47.0); Hemoglobin 11.1 g/dl (12.0-16.0); Imm Gran Abs Auto 0.02 X10*3/uL (0.00-0.03); Imm Gran Pct Auto 0.2 % (0.0-0.4); Lymphocytes Absolute Auto 2.7 X10*3/uL (1.2-4.9); Lymphocytes Percent Auto 31.2 % (20-40); Mean Corpuscular HGB Conc 32.4 g/dl (31.0-35.0); Mean Corpuscular Hemoglobin 32.2 pg (27.0-33.0); Mean Corpuscular Volume 99.4 fL (80.0-98.0); Mean Platelet Volume 10.1 fL (9.4-12.3); Monocytes Absolute Auto 0.7 X10*3/uL (0.1-1.2); Monocytes Percent Auto 8.1 % (2-11); Neutrophils Absolute Auto 4.8 x10*3/uL (2.0-8.3); Neutrophils Percent Auto 54.6 % (45-73); Platelet Count 274 X10*3/uL (160-400); Red Blood Count 3.45 X10*6/uL (4.20-5.50); Red Cell Distribution Width 13.2 % (11.0-16.0); White Blood Count 8.7 X10*3/uL (4.8-10.8)
--- NOTE | 2023-01-17 06:31 | PC.NURSE ---
PT passed bedside swallow md notified.
[2023-01-17 06:36] LABS: Anion Gap 14 (12-20); Blood Urea Nitrogen 23 mg/dL (9-16); Calcium 8.7 mg/dL (8.4-10.2); Carbon Dioxide 22 mmol/L (22-29); Chloride 110 mmol/L (96-108); Creatinine Clr Calc Pharmacy 43.9; Estimated Glomerular Filt Rate 57; Glucose Random 101 mg/dL (60-115); Potassium 4.4 mmol/L (3.3-5.1); Sodium 142 mmol/L (135-145)
[2023-01-17 06:54] LABS: Thyroid Stimulating Hormone 0.11 uIU/mL (0.32-4.0)
[2023-01-17 07:35] LABS: Vitamin B12 > 2000 pg/mL (200-900)
--- NOTE | 2023-01-17 09:56 | PHA.MEDREC ---
Pharmacy Consult ? Medication Reconciliation Pharmacy has completed the medication reconciliation. unable to obtain list since patient is an independent resident at [facility]. They reported family helps with medications but no contact information on patient profile. Used claim history for med rec.
[2023-01-17 10:36] LABS: Adenovirus F 40/41 Not Detected (Not Detect.); Astrovirus Not Detected (Not Detect.); Campylobacter Not Detected (Not Detect.); Cryptosporidium Not Detected (Not Detect.); Cyclospora cayetanensis Not Detected (Not Detect.); E. coli EAEC Not Detected (Not Detect.); E. coli EPEC Not Detected (Not Detect.); E. coli ETEC Not Detected (Not Detect.); E. coli STEC Not Detected (Not Detect.); Entamoeba histolytica Not Detected (Not Detect.); Giardia lamblia Not Detected (Not Detect.); Norovirus GI/GII Not Detected (Not Detect.); Plesiomonas shigelloides Not Detected (Not Detect.); Rotavirus A Not Detected (Not Detect.); Salmonella Not Detected (Not Detect.); Sapovirus Not Detected (Not Detect.); Shigella sp./EIEC Not Detected (Not Detect.); Vibrio Not Detected (Not Detect.); Vibrio Cholerae Not Detected (Not Detect.); Yersinia enterocolitica Not Detected (Not Detect.)
[2023-01-17] MEDS: Cyanocobalamin (Vitamin B-12) 500 MCG TABLET PO (10:50)
[2023-01-17] MEDS: buPROPion HCl XL 300 MG TAB.ER.24H PO (10:50)
[2023-01-17] MEDS: amLODIPine Besylate 5 MG TABLET PO (10:50)
[2023-01-17] MEDS: Levothyroxine Sodium 50 MCG TABLET PO (10:50)
[2023-01-17] MEDS: DULoxetine HCl 60 MG CAPSULE.DR PO (10:50)
[2023-01-17] MEDS: Pregabalin 75 MG CAPSULE PO ×2 (10:50→19:43)
--- NOTE | 2023-01-17 11:22 | MHC.SLORD ---
Speech Language Pathology Order Status: Reportedly patient passed RN swallow screen this morning. Per MD, APPRAISAL MANAGER swallow evaluation is not needed at this time.
--- NOTE | 2023-01-17 12:11 | P.PNIM_ITS ---
Subjective Subjective Date of Service: 01/17/23 Interval History: No acute issues overnight. Remains pleasantly confused Review of Systems Unable to obtain clear review of systems however denies chest pain shortness of breath nausea vomiting or diarrhea Physical Exam Vital Signs: Vital Signs: Last Vital Signs Temp 98.0 F 01/17/23 11:05 Pulse 80 01/17/23 11:05 Resp 20 01/17/23 11:05 BP 129/56 L 01/17/23 11:05 Pulse Ox 97 01/17/23 11:05 O2 Del Method Room Air 01/17/23 11:05 BMI result Body Mass Index 23.1 Const: Other: Awake alert confused HEENT: Other: Contusion left cheek greater than right cheek Resp: Other: Clear to auscultation bilaterally no rales rhonchi or wheezes Cardio: Other: No S4; positive S1-S2; S3 murmurs rubs or gallops GI: Other: Soft nontender nondistended normoactive bowel sounds Neuro: Other: Cranial nerves 2-12 grossly intact as tested. Motor 5/5 all extremities. Sensation intact. Gait not assessed. Confused at baseline Extrem: Other: No edema bilaterally Objective Data Active Medications Acetaminophen (Acetaminophen Supp 650 Mg Supp.Rect) 650 mg RI Q6H PRN PRN Reason: Pain, Mild (Pain Scale 1-3) Acetaminophen (Acetaminophen 325 Mg Tablet) 650 mg PO Q6H PRN PRN Reason: Pain, Mild (Pain Scale 1-3) Amlodipine Besylate (Amlodipine Besylate 5 Mg Tablet) 5 mg PO DAILY [facility]; Protocol Last Admin: 01/17/23 10:50 Dose: 5 mg Documented By: NORRIS Bupropion HCl (Bupropion Hcl Xl 300 Mg Tab.Er.24h) 300 mg PO DAILY [facility] Last Admin: 01/17/23 10:50 Dose: 300 mg Documented By: NORRIS Cyanocobalamin (Cyanocobalamin (Vitamin B-12) 500 Mcg Tablet) 500 mcg PO DAILY [facility] Last Admin: 01/17/23 10:50 Dose: 500 mcg Documented By: NORRIS Duloxetine HCl (Duloxetine Hcl 60 Mg Capsule.Dr) 60 mg PO DAILY [facility] Last Admin: 01/17/23 10:50 Dose: 60 mg Documented By: NORRIS Enoxaparin Sodium (Enoxaparin Sodium 30 Mg/0.3 Ml Syringe) 30 mg SUBCUT Q24H [facility] Last Admin: 01/17/23 00:44 Dose: Not Given Documented By: ADOLFO Non-Admin Reason: Patient Refused Ceftriaxone Sodium 1 gm/ (Sodium Chloride) 50 mls @ 100 mls/hr IV Q24H [facility] Levothyroxine Sodium (Levothyroxine Sodium 50 Mcg Tablet) 50 mcg PO DAILY@0600 [facility] Last Admin: 01/17/23 10:50 Dose: 50 mcg Documented By: NORRIS Melatonin (Melatonin 3 Mg Tablet) 6 mg PO BEDTIME PRN PRN Reason: Insomnia Omeprazole (Omeprazole 20 Mg Capsule.Dr) 20 mg PO DAILY [facility] Ondansetron HCl (Ondansetron Hcl 4 Mg/2 Ml Vial) 4 mg IVPUSH Q8H PRN PRN Reason: Nausea and Vomiting Pregabalin (Pregabalin 75 Mg Capsule) 75 mg PO BID [facility] Last Admin: 01/17/23 10:50 Dose: 75 mg Documented By: NORRIS Sodium Chloride (0.9 % Sodium Chloride Flush 3 Ml Syringe) 3 ml IVFLUSH QSHIFT [facility] Last Admin: 01/17/23 09:02 Dose: 3 ml Documented By: NORRIS Valsartan (Valsartan 80 Mg Tablet) 80 mg PO DAILY [facility] Labs 01/17/23 06:06 01/17/23 06:06 Labs: Laboratory Results - last 24 hr 01/16/23 01/16/23 01/16/23 20:30 20:55 20:55 MCV 98.5 H MCH 32.9 MCHC 33.4 RDW 13.2 Plt Count 277 MPV 10.6 Immature Gran % (Auto) 0.3 Neut % (Auto) 54.4 Lymph % (Auto) 31.1 [place] % (Auto) 9.2 Eos % (Auto) 4.3 H Baso % (Auto) 0.7 Lymph # (Auto) 2.3 [place] # (Auto) 0.7 Eos # (Auto) 0.3 Baso # (Auto) 0.1 Abs Immat Gran (auto) 0.02 Absolute Neuts (auto) 4.0 Absolute Nucleated RBC 0.000 Nucleated RBC % (auto) 0.0 PT 10.2 L INR 0.8 L APTT 29.1 Anion Gap Estim Creat Clear Calc Estimated GFR POC Glucose 85 Random Glucose Lactic Acid Calcium Total Bilirubin AST ALT Alkaline Phosphatase Ammonia Total Protein Albumin Vitamin B12 TSH Free T4 Urine Color Urine Appearance Urine pH Ur Specific [place] Urine Protein Urine Glucose (UA) Urine Ketones Urine Blood Urine Nitrite Ur Leukocyte Esterase Urine RBC Urine WBC Ur Squamous Epith Cells Urine Bacteria Hyaline Casts Stl C. cayetanensis PCR Stool Rotavirus A PCR Stl Adenov F PCR Stool Astrovirus (PCR) Stool Campylobacter PCR Stool Cryptosporidium PCR Stl Sh Tox Pr E STEC PCR Stool E coli O157 PCR Stl Enterotoxigenic E PCR Stool EPEC (PCR) Stool EAEC (PCR) Stl E. histolytica PCR Stool Giardia Lamblia PCR Stl P. shigelloides PCR Stool Salmonella PCR Stool Sapovirus (PCR) Stl Shigella/EIEC PCR St Y.enterocolitica PCR Stool Vibrio (PCR) Stl Vibrio cholerae PCR Stl Norovirus GI/GII PCR Urine Opiates Screen Urine Fentanyl Screen Ur Barbiturates Screen Ur Phencyclidine Scrn Ur Amphetamines Screen U Benzodiazepines Scrn Urine Cocaine Screen U Marijuana (THC) Screen Ethyl Alcohol C. difficile Tox B Gene COVID-19 ([facility]) COVID-19 Clin Com 01/16/23 01/16/23 01/16/23 20:55 20:55 20:55 MCV MCH MCHC RDW Plt Count MPV Immature Gran % (Auto) Neut % (Auto) Lymph % (Auto) [place] % (Auto) Eos % (Auto) Baso % (Auto) Lymph # (Auto) [place] # (Auto) Eos # (Auto) Baso # (Auto) Abs Immat Gran (auto) Absolute Neuts (auto) Absolute Nucleated RBC Nucleated RBC % (auto) PT INR APTT Anion Gap 17 Estim Creat Clear Calc 28.6 Estimated GFR 35 POC Glucose Random Glucose 80 Lactic Acid 1.1 Calcium 9.4 Total Bilirubin 0.2 AST 22 ALT 13 Alkaline Phosphatase 94 Ammonia Total Protein 6.9 Albumin 4.1 Vitamin B12 TSH 0.09 L Free T4 1.24 Urine Color Urine Appearance Urine pH Ur Specific [place] Urine Protein Urine Glucose (UA) Urine Ketones Urine Blood Urine Nitrite Ur Leukocyte Esterase Urine RBC Urine WBC Ur Squamous Epith Cells Urine Bacteria Hyaline Casts Stl C. cayetanensis PCR Stool Rotavirus A PCR Stl Adenov F PCR Stool Astrovirus (PCR) Stool Campylobacter PCR Stool Cryptosporidium PCR Stl Sh Tox Pr E STEC PCR Stool E coli O157 PCR Stl Enterotoxigenic E PCR Stool EPEC (PCR) Stool EAEC (PCR) Stl E. histolytica PCR Stool Giardia Lamblia PCR Stl P. shigelloides PCR Stool Salmonella PCR Stool Sapovirus (PCR) Stl Shigella/EIEC PCR St Y.enterocolitica PCR Stool Vibrio (PCR) Stl Vibrio cholerae PCR Stl Norovirus GI/GII PCR Urine Opiates Screen Urine Fentanyl Screen Ur Barbiturates Screen Ur Phencyclidine Scrn Ur Amphetamines Screen U Benzodiazepines Scrn Urine Cocaine Screen U Marijuana (THC) Screen Ethyl Alcohol < 10 C. difficile Tox B Gene COVID-19 ([facility]) Negative COVID-19 Clin Com See Note 01/16/23 01/16/23 01/16/23 20:55 20:55 23:17 MCV MCH MCHC RDW Plt Count MPV Immature Gran % (Auto) Neut % (Auto) Lymph % (Auto) [place] % (Auto) Eos % (Auto) Baso % (Auto) Lymph # (Auto) [place] # (Auto) Eos # (Auto) Baso # (Auto) Abs Immat Gran (auto) Absolute Neuts (auto) Absolute Nucleated RBC Nucleated RBC % (auto) PT INR APTT Anion Gap Estim Creat Clear Calc Estimated GFR POC Glucose Random Glucose Lactic Acid Calcium Total Bilirubin AST ALT Alkaline Phosphatase Ammonia 28 Total Protein Albumin Vitamin B12 TSH Free T4 Urine Color Dark Yellow Urine Appearance Clear Urine pH 5.5 Ur Specific [place] >= 1.030 H Urine Protein Negative Urine Glucose (UA) Negative Urine Ketones Trace Urine Blood Negative Urine Nitrite Negative Ur Leukocyte Esterase Trace H Urine RBC 0-2 Urine WBC 0-5 Ur Squamous Epith Cells 6-10 Urine Bacteria None Seen Hyaline Casts >20 Stl C. cayetanensis PCR Stool Rotavirus A PCR Stl Adenov F 40/41 PCR Stool Astrovirus (PCR) Stool Campylobacter PCR Stool Cryptosporidium PCR Stl Sh Tox Pr E STEC PCR Stool E coli O157 PCR Stl Enterotoxigenic E PCR Stool EPEC (PCR) Stool EAEC (PCR) Stl E. histolytica PCR Stool Giardia Lamblia PCR Stl P. shigelloides PCR Stool Salmonella PCR Stool Sapovirus (PCR) Stl Shigella/EIEC PCR St Y.enterocolitica PCR Stool Vibrio (PCR) Stl Vibrio cholerae PCR Stl Norovirus GI/GII PCR Urine Opiates Screen Not Detected Urine Fentanyl Screen Not Detected Ur Barbiturates Screen Not Detected Ur Phencyclidine Scrn Not Detected Ur Amphetamines Screen Not Detected U Benzodiazepines Scrn Not Detected Urine Cocaine Screen Not Detected U Marijuana (THC) Screen Not Detected Ethyl Alcohol C. difficile Tox B Gene COVID-19 ([facility]) COVID-19 Clin Com 01/17/23 01/17/23 01/17/23 00:05 00:05 06:06 MCV 99.4 H MCH 32.2 MCHC 32.4 RDW 13.2 Plt Count 274 MPV 10.1 Immature Gran % (Auto) 0.2 Neut % (Auto) 54.6 Lymph % (Auto) 31.2 [place] % (Auto) 8.1 Eos % (Auto) 4.9 H Baso % (Auto) 1.0 Lymph # (Auto) 2.7 [place] # (Auto) 0.7 Eos # (Auto) 0.4 Baso # (Auto) 0.1 Abs Immat Gran (auto) 0.02 Absolute Neuts (auto) 4.8 Absolute Nucleated RBC 0.000 Nucleated RBC % (auto) 0.0 PT INR APTT Anion Gap Estim Creat Clear Calc Estimated GFR POC Glucose Random Glucose Lactic Acid Calcium Total Bilirubin AST ALT Alkaline Phosphatase Ammonia Total Protein Albumin Vitamin B12 TSH Free T4 Urine Color Urine Appearance Urine pH Ur Specific [place] Urine Protein Urine Glucose (UA) Urine Ketones Urine Blood Urine Nitrite Ur Leukocyte Esterase Urine RBC Urine WBC Ur Squamous Epith Cells Urine Bacteria Hyaline Casts Stl C. cayetanensis PCR Not Detected Stool Rotavirus A PCR Not Detected Stl Adenov F 40/41 PCR Not Detected Stool Astrovirus (PCR) Not Detected Stool Campylobacter PCR Not Detected Stool Cryptosporidium PCR Not Detected Stl Sh Tox Pr E STEC PCR Not Detected Stool E coli O157 PCR Not applicable Stl Enterotoxigenic E PCR Not Detected Stool EPEC (PCR) Not Detected Stool EAEC (PCR) Not Detected Stl E. histolytica PCR Not Detected Stool Giardia Lamblia PCR Not Detected Stl P. shigelloides PCR Not Detected Stool Salmonella PCR Not Detected Stool Sapovirus (PCR) Not Detected Stl Shigella/EIEC PCR Not Detected St Y.enterocolitica PCR Not Detected Stool Vibrio (PCR) Not Detected Stl Vibrio cholerae PCR Not Detected Stl Norovirus GI/GII PCR Not Detected Urine Opiates Screen Urine Fentanyl Screen Ur Barbiturates Screen Ur Phencyclidine Scrn Ur Amphetamines Screen U Benzodiazepines Scrn Urine Cocaine Screen U Marijuana (THC) Screen Ethyl Alcohol C. difficile Tox B Gene NEGATIVE COVID-19 ([facility]) COVID-19 Clin Com 01/17/23 01/17/23 06:06 06:06 MCV MCH MCHC RDW Plt Count MPV Immature Gran % (Auto) Neut % (Auto) Lymph % (Auto) [place] % (Auto) Eos % (Auto) Baso % (Auto) Lymph # (Auto) [place] # (Auto) Eos # (Auto) Baso # (Auto) Abs Immat Gran (auto) Absolute Neuts (auto) Absolute Nucleated RBC Nucleated RBC % (auto) PT INR APTT Anion Gap 14 Estim Creat Clear Calc 43.9 Estimated GFR 57 POC Glucose Random Glucose 101 Lactic Acid Calcium 8.7 D Total Bilirubin AST ALT Alkaline Phosphatase Ammonia Total Protein Albumin Vitamin B12 > 2000 H TSH 0.11 L Free T4 Urine Color Urine Appearance Urine pH Ur Specific [place] Urine Protein Urine Glucose (UA) Urine Ketones Urine Blood Urine Nitrite Ur Leukocyte Esterase Urine RBC Urine WBC Ur Squamous Epith Cells Urine Bacteria Hyaline Casts Stl C. cayetanensis PCR Stool Rotavirus A PCR Stl Adenov F 40/41 PCR Stool Astrovirus (PCR) Stool Campylobacter PCR Stool Cryptosporidium PCR Stl Sh Tox Pr E STEC PCR Stool E coli O157 PCR Stl Enterotoxigenic E PCR Stool EPEC (PCR) Stool EAEC (PCR) Stl E. histolytica PCR Stool Giardia Lamblia PCR Stl P. shigelloides PCR Stool Salmonella PCR Stool Sapovirus (PCR) Stl Shigella/EIEC PCR St Y.enterocolitica PCR Stool Vibrio (PCR) Stl Vibrio cholerae PCR Stl Norovirus GI/GII PCR Urine Opiates Screen Urine Fentanyl Screen Ur Barbiturates Screen Ur Phencyclidine Scrn Ur Amphetamines Screen U Benzodiazepines Scrn Urine Cocaine Screen U Marijuana (THC) Screen Ethyl Alcohol C. difficile Tox B Gene COVID-19 ([facility]) COVID-19 Clin Com Assessment and Plan (1) Altered mental status: Status: Acute (2) ARSENIO (acute kidney injury): Status: Acute (3) Essential hypertension: Status: Acute (4) Hypothyroidism: Status: Acute Plan This is a 77-year-old female with pertinent history of mood disorder, essential hypertension, hypothyroidism, gastroesophageal reflux disease who was brought to the emergency department for evaluation of altered mentation. Discussion with daughter reveals mother has had this declining mental status for some time in the backdrop of alcohol abuse. She currently resides at an independent living and has had multiple falls which daughter counts to poor balance in the backdrop of alcohol use. Bruising on face is secondary to a fall recently 1.Acute encephalopathy -likely multifactorial; CT scan with age related changes consistent with dementia. Likely natural progression of her dementia; will complete MRI as it was ordered on admission -as described by daughter, level of care will need to be changed. Will obtain PT consult and discussed with discharge planning -continue one-to-one sitter 2.Acute kidney injury -given response to volume. . . Likely pre renal -follow renals/divalents 3.Mood disorder -continue Cymbalta at this time -reassess need as outpatient 4.Hypothyroidism -TSH suppressed. Will adjust supplement -follow-up TSH as outpatient 5.Essential hypertension -acceptable control off ARB -renal function normalized... Will add back as clinically appropriate -follow renals/divalents Lovenox Full code Patient requires ongoing hospitalization to complete workup for encephalopathy and establish safe placement Time Spent With Patient Time: Total time managing care of this patient today ____ minutes. Quality Stroke Does the patient have a stroke diagnosis?: No VTE Prior VTE?: No VTE Risk Level:: Medical - moderate - high VTE Device Contraindication: Treatment Not Indicated VTE Drug Contraindication: N/A - Med Ordered
[2023-01-17] MEDS: cefTRIAXone sodium 1 GM in 0.9 % Sodium Chloride 50 ML IV (12:51)
--- NOTE | 2023-01-17 12:51 | MHC.CM.PN ---
pt lives in [facility] living per dgter pt had no services dc plan is uncertain at this time pt to have a pt eval ?str
[2023-01-17] MEDS: Acetaminophen 325 MG TABLET 650 MG PO (15:44)
--- NOTE | 2023-01-17 16:08 | MHC.CM.PN ---
pt does have a [facility] the [facility] did attempt to email t/w it id not go thru will aske cecile to resend
[2023-01-17] MEDS: traMADoL HCL 50 MG TABLET PO (17:43)
[2023-01-17] MEDS: Enoxaparin Sodium 30 MG/0.3 ML SYRINGE SUBCUT (23:07)
[2023-01-18] VITALS (7 sets, daily range): BP systolic 115–150; BP diastolic 57–71; PULSE 70–92; RESP 17–18; TEMP 36.3–36.9; O2SAT 95–98
[2023-01-18] MEDS: Cyanocobalamin (Vitamin B-12) 500 MCG TABLET PO (10:00)
[2023-01-18] MEDS: Acetaminophen 325 MG TABLET 650 MG PO ×2 (10:32→17:54)
[2023-01-18] MEDS: DULoxetine HCl 60 MG CAPSULE.DR PO (10:34)
[2023-01-18] MEDS: traMADoL HCL 50 MG TABLET PO ×2 (10:35→17:55)
[2023-01-18] MEDS: Valsartan 80 MG TABLET PO (10:35)
[2023-01-18] MEDS: buPROPion HCl XL 300 MG TAB.ER.24H PO (10:35)
[2023-01-18] MEDS: Omeprazole 20 MG CAPSULE.DR PO (10:36)
[2023-01-18] MEDS: amLODIPine Besylate 5 MG TABLET PO (10:36)
[2023-01-18] MEDS: Pregabalin 75 MG CAPSULE PO ×2 (10:37→20:14)
--- NOTE | 2023-01-18 11:47 | HO.PM.IMPN ---
Subjective Subjective Date of Service: 01/18/23 Interval History: No acute issues overnight. Remains pleasantly confused Review of Systems Unable to obtain clear review of systems however denies chest pain shortness of breath nausea vomiting or diarrhea Physical Exam Vital Signs: Vital Signs: Last Vital Signs Temp 97.5 F 01/18/23 08:00 Pulse 72 01/18/23 08:00 Resp 18 01/18/23 08:00 BP 147/71 H 01/18/23 08:00 Pulse Ox 96 01/18/23 08:00 O2 Del Method Room Air 01/18/23 08:00 BMI result Body Mass Index 23.1 Const: Other: Awake alert confused HEENT: Other: Contusion left cheek greater than right cheek Resp: Other: Clear to auscultation bilaterally no rales rhonchi or wheezes Cardio: Other: No S4; positive S1-S2; S3 murmurs rubs or gallops GI: Other: Soft nontender nondistended normoactive bowel sounds Neuro: Other: Cranial nerves 2-12 grossly intact as tested. Motor 5/5 all extremities. Sensation intact. Gait not assessed. Confused at baseline Extrem: Other: No edema bilaterally Objective Data Active Medications Acetaminophen (Acetaminophen Supp 650 Mg Supp.Rect) 650 mg ND Q6H PRN PRN Reason: Pain, Mild (Pain Scale 1-3) Acetaminophen (Acetaminophen 325 Mg Tablet) 650 mg PO Q6H PRN PRN Reason: Pain, Mild (Pain Scale 1-3) Last Admin: 01/18/23 10:32 Dose: 650 mg Documented By: MARK Amlodipine Besylate (Amlodipine Besylate 5 Mg Tablet) 5 mg PO DAILY [facility]; Protocol Last Admin: 01/18/23 10:36 Dose: 5 mg Documented By: MARK Bupropion HCl (Bupropion Hcl Xl 300 Mg Tab.Er.24h) 300 mg PO DAILY [facility] Last Admin: 01/18/23 10:35 Dose: 300 mg Documented By: MARK Cyanocobalamin (Cyanocobalamin (Vitamin B-12) 500 Mcg Tablet) 500 mcg PO DAILY [facility] Last Admin: 01/17/23 10:50 Dose: 500 mcg Documented By: NORRIS Duloxetine HCl (Duloxetine Hcl 60 Mg Capsule.Dr) 60 mg PO DAILY [facility] Last Admin: 01/18/23 10:34 Dose: 60 mg Documented By: MARK Enoxaparin Sodium (Enoxaparin Sodium 30 Mg/0.3 Ml Syringe) 30 mg SUBCUT Q24H [facility] Last Admin: 01/17/23 23:07 Dose: 30 mg Documented By: ELLY Ceftriaxone Sodium 1 gm/ (Sodium Chloride) 50 mls @ 100 mls/hr IV Q24H [facility] Last Infusion: 01/17/23 13:27 Dose: 0 mls/hr Documented By: NORRIS Melatonin (Melatonin 3 Mg Tablet) 6 mg PO BEDTIME PRN PRN Reason: Insomnia Omeprazole (Omeprazole 20 Mg Capsule.) 20 mg PO DAILY [facility] Last Admin: 01/18/23 10:36 Dose: 20 mg Documented By: MARK Ondansetron HCl (Ondansetron Hcl 4 Mg/2 Ml Vial) 4 mg IVPUSH Q8H PRN PRN Reason: Nausea and Vomiting Pregabalin (Pregabalin 75 Mg Capsule) 75 mg PO BID [facility] Last Admin: 01/18/23 10:37 Dose: 75 mg Documented By: MARK Sodium Chloride (0.9 % Sodium Chloride Flush 3 Ml Syringe) 3 ml IVFLUSH QSHIFT [facility] Last Admin: 01/17/23 23:10 Dose: 3 ml Documented By: ELLY Tramadol HCl (Tramadol Hcl 50 Mg Tablet) 50 mg PO Q6H PRN PRN Reason: Pain, Moderate(Pain Scale 4-6) Last Admin: 01/18/23 10:35 Dose: 50 mg Documented By: MARK Valsartan (Valsartan 80 Mg Tablet) 80 mg PO DAILY [facility] Last Admin: 01/18/23 10:35 Dose: 80 mg Documented By: MARK Labs 01/17/23 06:06 01/17/23 06:06 Microbiology Microbiology Results: Microbiology 01/16/23 20:55 Blood Culture - Preliminary Blood - Venous No growth after 24 hours. 01/16/23 20:55 Blood Culture - Preliminary Blood - Venous No growth after 24 hours. Assessment and Plan (1) Acute metabolic encephalopathy: Status: Acute (2) Dementia: Status: Acute Plan This is a 77-year-old female with pertinent history of mood disorder, essential hypertension, hypothyroidism, gastroesophageal reflux disease who was brought to the emergency department for evaluation of altered mentation. Discussion with daughter reveals mother has had this declining mental status for some time in the backdrop of alcohol abuse. She currently resides at an independent living and has had multiple falls which daughter counts to poor balance in the backdrop of alcohol use. Bruising on face is secondary to a fall recently 1.Acute encephalopathy -essentially resolved. Given workup this is a progression of her dementia as verified by daughter. Long discussion. .. Patient will need to be leveled up from independent living. Daughter states there are 2 memory units at her facility both locked wards. Explained I believe patient would be most suited there. States family has already made phone calls to the facility and is awaiting response -continue one-to-one sitter 2.Acute kidney injury -resolved -follow renals/divalents 3.Mood disorder -continue Cymbalta at this time -reassess need as outpatient 4.Hypothyroidism -TSH suppressed. Will adjust supplement -follow-up TSH as outpatient 5.Essential hypertension -acceptable control off ARB -renal function normalized... Will add back as clinically appropriate -follow renals/divalents Lovenox Full code Patient requires ongoing hospitalization to facilitate safe placement. Cannot return to independent living at this time Time Spent With Patient Time: Total time managing care of this patient today ____ minutes. Quality Stroke Does the patient have a stroke diagnosis?: No VTE Prior VTE?: No VTE Risk Level:: Medical - moderate - high VTE Device Contraindication: Treatment Not Indicated VTE Drug Contraindication: N/A - Med Ordered
[2023-01-18] MEDS: cefTRIAXone sodium 1 GM in 0.9 % Sodium Chloride 50 ML IV (11:51)
[2023-01-18] MEDS: 0.9 % Sodium Chloride Flush 3 ML SYRINGE IVFLUSH ×2 (15:55→20:15)
[2023-01-18] MEDS: Melatonin 3 MG TABLET 6 MG PO (20:15)
[2023-01-18] MEDS: Enoxaparin Sodium 30 MG/0.3 ML SYRINGE SUBCUT (23:02)
[2023-01-19 07:36] VITALS: BP 136/65; PULSE 68; RESP 16; TEMP 36.1; O2SAT 95
[2023-01-19] MEDS: buPROPion HCl XL 300 MG TAB.ER.24H PO (09:32)
[2023-01-19] MEDS: traMADoL HCL 50 MG TABLET PO ×2 (09:32→20:16)
[2023-01-19] MEDS: DULoxetine HCl 60 MG CAPSULE.DR PO (09:32)
[2023-01-19] MEDS: Cyanocobalamin (Vitamin B-12) 500 MCG TABLET PO (09:32)
[2023-01-19] MEDS: Valsartan 80 MG TABLET PO (09:32)
[2023-01-19] MEDS: Omeprazole 20 MG CAPSULE.DR PO (09:32)
[2023-01-19] MEDS: amLODIPine Besylate 5 MG TABLET PO (09:32)
[2023-01-19] MEDS: Pregabalin 75 MG CAPSULE PO ×2 (09:33→20:16)
[2023-01-19] MEDS: 0.9 % Sodium Chloride Flush 3 ML SYRINGE IVFLUSH ×3 (09:33→20:17)
[2023-01-19 11:45] VITALS: BP 167/79; PULSE 81; RESP 18; TEMP 36.2; O2SAT 97
--- NOTE | 2023-01-19 12:09 | HO.PM.IMPN ---
Subjective Subjective Date of Service: 01/19/23 Interval History: No acute issues overnight. Remains pleasantly confused Review of Systems Unable to obtain clear review of systems however denies chest pain shortness of breath nausea vomiting or diarrhea Physical Exam Vital Signs: Vital Signs: Last Vital Signs Temp 97.1 F 01/19/23 11:45 Pulse 81 01/19/23 11:45 Resp 18 01/19/23 11:45 BP 167/79 H 01/19/23 11:45 Pulse Ox 97 01/19/23 11:45 O2 Del Method Room Air 01/19/23 11:45 BMI result Body Mass Index 23.1 Const: Other: Awake alert confused HEENT: Other: Contusion left cheek greater than right cheek Resp: Other: Clear to auscultation bilaterally no rales rhonchi or wheezes Cardio: Other: No S4; positive S1-S2; S3 murmurs rubs or gallops GI: Other: Soft nontender nondistended normoactive bowel sounds Neuro: Other: Cranial nerves 2-12 grossly intact as tested. Motor 5/5 all extremities. Sensation intact. Gait not assessed. Confused at baseline Extrem: Other: No edema bilaterally Objective Data Active Medications Acetaminophen (Acetaminophen Supp 650 Mg Supp.Rect) 650 mg AR Q6H PRN PRN Reason: Pain, Mild (Pain Scale 1-3) Acetaminophen (Acetaminophen 325 Mg Tablet) 650 mg PO Q6H PRN PRN Reason: Pain, Mild (Pain Scale 1-3) Last Admin: 01/18/23 17:54 Dose: 650 mg Documented By: BENTON Amlodipine Besylate (Amlodipine Besylate 5 Mg Tablet) 5 mg PO DAILY [facility]; Protocol Last Admin: 01/19/23 09:32 Dose: 5 mg Documented By: DANICA Bupropion HCl (Bupropion Hcl Xl 300 Mg Tab.Er.24h) 300 mg PO DAILY [facility] Last Admin: 01/19/23 09:32 Dose: 300 mg Documented By: DANICA Cyanocobalamin (Cyanocobalamin (Vitamin B-12) 500 Mcg Tablet) 500 mcg PO DAILY [facility] Last Admin: 01/19/23 09:32 Dose: 500 mcg Documented By: DANICA Duloxetine HCl (Duloxetine Hcl 60 Mg Capsule.Dr) 60 mg PO DAILY [facility] Last Admin: 01/19/23 09:32 Dose: 60 mg Documented By: DANICA Enoxaparin Sodium (Enoxaparin Sodium 30 Mg/0.3 Ml Syringe) 30 mg SUBCUT Q24H [facility] Last Admin: 01/18/23 23:02 Dose: 30 mg Documented By: VERA Ceftriaxone Sodium 1 gm/ (Sodium Chloride) 50 mls @ 100 mls/hr IV Q24H [facility] Last Infusion: 01/18/23 14:09 Dose: 0 mls/hr Documented By: MARK Melatonin (Melatonin 3 Mg Tablet) 6 mg PO BEDTIME PRN PRN Reason: Insomnia Last Admin: 01/18/23 20:15 Dose: 6 mg Documented By: VERA Omeprazole (Omeprazole 20 Mg Capsule.Dr) 20 mg PO DAILY [facility] Last Admin: 01/19/23 09:32 Dose: 20 mg Documented By: DANICA Ondansetron HCl (Ondansetron Hcl 4 Mg/2 Ml Vial) 4 mg IVPUSH Q8H PRN PRN Reason: Nausea and Vomiting Pregabalin (Pregabalin 75 Mg Capsule) 75 mg PO BID [facility] Last Admin: 01/19/23 09:33 Dose: 75 mg Documented By: DANICA Sodium Chloride (0.9 % Sodium Chloride Flush 3 Ml Syringe) 3 ml IVFLUSH QSHIFT [facility] Last Admin: 01/19/23 09:33 Dose: 3 ml Documented By: DANICA Tramadol HCl (Tramadol Hcl 50 Mg Tablet) 50 mg PO Q6H PRN PRN Reason: Pain, Moderate(Pain Scale 4-6) Last Admin: 01/19/23 09:32 Dose: 50 mg Documented By: DANICA Valsartan (Valsartan 80 Mg Tablet) 80 mg PO DAILY [facility] Last Admin: 01/19/23 09:32 Dose: 80 mg Documented By: DANICA Labs 01/17/23 06:06 01/17/23 06:06 Microbiology Microbiology Results: Microbiology 01/16/23 20:55 Blood Culture - Preliminary Blood - Venous No growth after 48 hours. 01/16/23 20:55 Blood Culture - Preliminary Blood - Venous No growth after 48 hours. Assessment and Plan (1) Acute metabolic encephalopathy: Status: Acute Plan This is a 77-year-old female with pertinent history of mood disorder, essential hypertension, hypothyroidism, gastroesophageal reflux disease who was brought to the emergency department for evaluation of altered mentation. Discussion with daughter reveals mother has had this declining mental status for some time in the backdrop of alcohol abuse. She currently resides at an independent living and has had multiple falls which daughter counts to poor balance in the backdrop of alcohol use. Bruising on face is secondary to a fall recently 1.Acute encephalopathy -essentially resolved. Given workup this is a progression of her dementia as verified by daughter. Long discussion. .. Patient will need to be leveled up from independent living. Daughter states there are 2 memory units at her facility both locked wards. Explained I believe patient would be most suited there. States family has already made phone calls to the facility and is awaiting response. Discussed with patient with daughter present. Unfortunately unlikely to remember conversation -continue one-to-one sitter 2.Acute kidney injury -resolved -follow renals/divalents 3.Mood disorder -continue Cymbalta at this time -reassess need as outpatient 4.Hypothyroidism -TSH suppressed. Will adjust supplement -follow-up TSH as outpatient 5.Essential hypertension -acceptable control off ARB -renal function normalized... Will add back as clinically appropriate -follow renals/divalents Lovenox Full code Patient requires ongoing hospitalization to facilitate safe placement. Cannot return to independent living at this time Time Spent With Patient Time: Total time managing care of this patient today ____ minutes. Quality Stroke Does the patient have a stroke diagnosis?: No VTE Prior VTE?: No VTE Risk Level:: Medical - moderate - high VTE Device Contraindication: Treatment Not Indicated VTE Drug Contraindication: N/A - Med Ordered
[2023-01-19] MEDS: cefTRIAXone sodium 1 GM in 0.9 % Sodium Chloride 50 ML IV (12:22)
[2023-01-19] MEDS: Acetaminophen 325 MG TABLET 650 MG PO (13:40)
[2023-01-19 15:13] VITALS: BP 144/71; PULSE 70; RESP 18; TEMP 36.3; O2SAT 97
[2023-01-19 18:31] VITALS: BP 141/61; PULSE 70; RESP 18; TEMP 36.2; O2SAT 94
[2023-01-19] MEDS: Enoxaparin Sodium 30 MG/0.3 ML SYRINGE SUBCUT (22:03)
[2023-01-20 04:00] VITALS: BP 134/68; PULSE 73; RESP 18; TEMP 36.6; O2SAT 96
[2023-01-20 07:00] VITALS: BP 122/61; PULSE 72; RESP 17; TEMP 36.2; O2SAT 97
[2023-01-20 09:23] VITALS: BP 122/61; PULSE 72; O2SAT 97
[2023-01-20] MEDS: Omeprazole 20 MG CAPSULE.DR PO (09:25)
[2023-01-20] MEDS: Cyanocobalamin (Vitamin B-12) 500 MCG TABLET PO (09:25)
[2023-01-20] MEDS: Pregabalin 75 MG CAPSULE PO (09:25)
[2023-01-20] MEDS: amLODIPine Besylate 5 MG TABLET PO (09:25)
[2023-01-20] MEDS: DULoxetine HCl 60 MG CAPSULE.DR PO (09:25)
[2023-01-20] MEDS: buPROPion HCl XL 300 MG TAB.ER.24H PO (09:25)
[2023-01-20] MEDS: 0.9 % Sodium Chloride Flush 3 ML SYRINGE IVFLUSH (09:37)
[2023-01-20] MEDS: cefTRIAXone sodium 1 GM in 0.9 % Sodium Chloride 50 ML IV (13:05)
--- NOTE | 2023-01-20 13:11 | HO.PM.IMPN ---
Subjective Subjective Date of Service: 01/20/23 Physical Exam Vital Signs: Vital Signs: Last Vital Signs Temp 97.1 F 01/20/23 07:00 Pulse 72 01/20/23 09:23 Resp 17 01/20/23 07:00 BP 122/61 01/20/23 09:23 Pulse Ox 97 01/20/23 09:23 O2 Del Method Room Air 01/20/23 07:00 BMI result Body Mass Index 23.1 Objective Data Active Medications Acetaminophen (Acetaminophen Supp 650 Mg Supp.Rect) 650 mg SC Q6H PRN PRN Reason: Pain, Mild (Pain Scale 1-3) Acetaminophen (Acetaminophen 325 Mg Tablet) 650 mg PO Q6H PRN PRN Reason: Pain, Mild (Pain Scale 1-3) Last Admin: 01/19/23 13:40 Dose: 650 mg Documented By: DANICA Amlodipine Besylate (Amlodipine Besylate 5 Mg Tablet) 5 mg PO DAILY [facility]; Protocol Last Admin: 01/20/23 09:25 Dose: 5 mg Documented By: ALEXEI Bupropion HCl (Bupropion Hcl Xl 300 Mg Tab.Er.24h) 300 mg PO DAILY [facility] Last Admin: 01/20/23 09:25 Dose: 300 mg Documented By: ALEXEI Cyanocobalamin (Cyanocobalamin (Vitamin B-12) 500 Mcg Tablet) 500 mcg PO DAILY [facility] Last Admin: 01/20/23 09:25 Dose: 500 mcg Documented By: ALEXEI Duloxetine HCl (Duloxetine Hcl 60 Mg Capsule.Dr) 60 mg PO DAILY [facility] Last Admin: 01/20/23 09:25 Dose: 60 mg Documented By: ALEXEI Enoxaparin Sodium (Enoxaparin Sodium 30 Mg/0.3 Ml Syringe) 30 mg SUBCUT Q24H [facility] Last Admin: 01/19/23 22:03 Dose: 30 mg Documented By: GENEVIEVE Ceftriaxone Sodium 1 gm/ (Sodium Chloride) 50 mls @ 100 mls/hr IV Q24H [facility] Last Admin: 01/20/23 13:05 Dose: 100 mls/hr Documented By: MARK Melatonin (Melatonin 3 Mg Tablet) 6 mg PO BEDTIME PRN PRN Reason: Insomnia Last Admin: 01/18/23 20:15 Dose: 6 mg Documented By: VERA Omeprazole (Omeprazole 20 Mg Capsule.) 20 mg PO DAILY [facility] Last Admin: 01/20/23 09:25 Dose: 20 mg Documented By: ALEXEI Ondansetron HCl (Ondansetron Hcl 4 Mg/2 Ml Vial) 4 mg IVPUSH Q8H PRN PRN Reason: Nausea and Vomiting Pregabalin (Pregabalin 75 Mg Capsule) 75 mg PO BID [facility] Last Admin: 01/20/23 09:25 Dose: 75 mg Documented By: ALEXEI Sodium Chloride (0.9 % Sodium Chloride Flush 3 Ml Syringe) 3 ml IVFLUSH QSHIFT [facility] Last Admin: 01/20/23 09:37 Dose: 3 ml Documented By: ALEXEI Tramadol HCl (Tramadol Hcl 50 Mg Tablet) 50 mg PO Q6H PRN PRN Reason: Pain, Moderate(Pain Scale 4-6) Last Admin: 01/19/23 20:16 Dose: 50 mg Documented By: TADEOP Labs 01/17/23 06:06 01/17/23 06:06 Assessment and Plan (1) Acute metabolic encephalopathy: Status: Acute Plan 77-year-old female with pertinent history of mood disorder, essential hypertension, hypothyroidism, gastroesophageal reflux disease who was brought to the emergency department for evaluation of altered mentation. Discussion with daughter reveals mother has had this declining mental status for some time in the backdrop of alcohol abuse.? She currently resides at an independent living and has had multiple falls which daughter counts to poor balance in the backdrop of alcohol use.? Bruising on face is secondary to a fall recently 1.Acute encephalopathy essentially resolved.? Given workup this is a progression of her dementia as verified by daughter.? Long discussion. Patient will need to be leveled up from independent living.? Daughter states there are 2 memory units at her facility both locked wards.? Explained I believe patient would be most suited there.? States family has already made phone calls to the facility and is awaiting response.? Discussed with patient with daughter present.? Unfortunately unlikely to remember conversation -continue one-to-one sitter 2.Acute kidney injury-resolved follow renals/divalents 3.Mood disorder-continue Cymbalta at this time reassess need as outpatient 4.Hypothyroidism-TSH suppressed.? Will adjust supplement follow-up TSH as outpatient 5.Essential hypertension -acceptable control off ARB -renal function normalized...? Will add back as clinically appropriate -follow renals/divalents Lovenox Full code Patient requires ongoing hospitalization to facilitate safe placement.? Cannot return to independent living at this time Time Spent With Patient Time: Total time managing care of this patient today ____ minutes. Quality Stroke Does the patient have a stroke diagnosis?: No VTE Prior VTE?: No VTE Risk Level:: Medical - moderate - high VTE Device Contraindication: Treatment Not Indicated VTE Drug Contraindication: N/A - Med Ordered
--- NOTE | 2023-01-20 14:27 | MHC.CM.PN ---
Pt medically cleared for d/c home [facility] w/private pay caregiver until pt is able to be assessed and transition into [facility], [place] Kevin at bedside and will transport pt.
--- NOTE | 2023-01-20 14:35 | PM.DS ---
DS: Providers Provider Date of Service: 01/20/23 Date of admission: 01/16/23 22:42 Date of discharge: 01/20/23 Primary care physician: Unknown Physician Attending physician on discharge: Tamiko Bardales Discharging clinician: Tamiko Bardales DS: Diagnosis Discharge Diagnosis (1) Acute metabolic encephalopathy: Status: Acute DS: Summary Hospital Course Hospital Course: 77-year-old female with pertinent history of mood disorder, essential hypertension, hypothyroidism, gastroesophageal reflux disease who was brought to the emergency department for evaluation of altered mentation.? History obtained by ER provider and chart review.? Unable to obtain history from the patient.? Patient presents for evaluation of confusion and word-finding difficulty.? Also with multiple falls over the last 1 week.? At the time of my evaluation, patient is only oriented to self.? Does not know why she is here.? Unable to obtain review of systems.? Patient tells me that she has been having multiple episodes of loose stools. hospital course: Patient was admitted for acute encephalopathy possible multifactorial-patient has dementia( CT head showed-Generalized atrophy and nonspecific periventricular white matter diseas, MRI-Moderate chronic white matter microangiopathy and moderate diffuse brain parenchymal volume loss), also had ARSENIO initially and also treated for possible UTI-subsequently patient mental status seems to be improved to baseline as per family. Patient will go home-given the benefit of doubt will treat UTI with p.o. Ceftin for 3 more days. Blood cultures are negative. ARSENIO: Seems to be improved with improving p.o. intake and holding omlesartan: Repeat renal function and electrolytes out patiently and consider adding omlesartan if needed for blood pressure outpatient with PCP. hypothyroidism: On thyroid hormone replacement therapy, TSH is 0.11. Monitor TSH level in 1 week outpatient. Diarrhea resolved: C diff negative, also GI panel also negative as well as blood cultures. Currently no intervention needed. If any new symptoms -the need to be evaluated , may need to go to emergency room. Seen by PT-PT is not indicated. [facility] w/private pay caregiver until pt is able to be assessed and transition into [facility], [place] Dorita at bedside and will transport pt. Plan: Hold omlesartan-Repeat renal function and electrolytes out patiently and consider adding omlesartan if needed for blood pressure outpatient with PCP. Complete course of antibiotic Ceftin for 3 more days. also repeat tsh levels in 1 week. Follow-up with PCP. Assessment and plan coordination time spent 50 minute. Time Spent with Patient Time attestation: Total time managing care of this patient today ____ minutes. Discharge coordination time: Greater than 30 minutes Quality: Safe Use of Opioids Does Pt have an Active Cancer Diagnosis on the Problem List?: No Quality: Stroke Does the patient have a stroke diagnosis?: No Physical Exam Vital Signs: Vital Signs: Last Vital Signs Temp 97.1 F 01/20/23 07:00 Pulse 72 01/20/23 09:23 Resp 17 01/20/23 07:00 BP 122/61 01/20/23 09:23 Pulse Ox 97 01/20/23 09:23 O2 Del Method Room Air 01/20/23 07:00 BMI result Body Mass Index 23.1 Appearance: Alert.? Oriented X2.? cvs: rrr, [id number]. res: clear to auscultation ,no rhonchii or wheezing abd: no rebound or guarding ,nt, bs present. ext pulses present , no cyanosis . neuro: nonfocal. DS: Data Data Completed and Pending Labs on day of discharge: Preliminary micro results at discharge 01/16/23 20:55 Blood Culture - Preliminary Blood - Venous No growth after 48 hours. 01/16/23 20:55 Blood Culture - Preliminary Blood - Venous No growth after 48 hours. Imaging Chest x-ray: Radiologist's impression: ITS Impressions Chest X-Ray 01/16/23 21:10 IMPRESSION: No evidence for acute disease in the chest. Head CT 01/16/23 21:48 IMPRESSION: No acute findings. Generalized atrophy and nonspecific periventricular white matter disease. Abdomen X-Ray 01/17/23 10:30 IMPRESSION: Postsurgical changes to the lumbar spine from L2 to L5 and right hip replacement. Brain MRI 01/17/23 14:10 IMPRESSION: Limited study with motion artifacts. No acute intracranial process. Moderate chronic white matter microangiopathy and moderate diffuse brain parenchymal volume loss. Discharge Plan Discharge Anticipated Discharge Date/Time: 01/20/23 14:19 Patient Disposition: Home, Self-Care Discharge Diagnosis: Acute encephalopathy multifactorial- has dementia, also had a KI, possible UTI Referrals: Dorita Rosario MD [Physician] - 1 Week Discharge Medications: New cefuroxime axetil 250 mg tablet 250 mg PO Q12H Qty: 6 0RF Continued amlodipine 5 mg tablet 5 mg PO DAILY pantoprazole 20 mg tablet,delayed release (DR/EC) 20 mg PO DAILY cyanocobalamin (vitamin B-12) 500 mcg tablet 500 mcg PO DAILY levothyroxine 50 mcg tablet 50 mcg PO DAILY bupropion HCl 300 mg tablet extended release 24 hr 300 mg PO DAILY duloxetine 60 mg capsule,delayed release(DR/EC) 60 mg PO DAILY pregabalin 75 mg capsule 75 mg PO BID Held olmesartan 20 mg tablet 20 mg PO DAILY Hold Instructions: Resume on 02/09/23. Discharge Orders: Discharge Order (Routine); Ordered 01/20/23 Ordered By: Tamiko Bardales Diet: Advance to usual diet Activity on Discharge: As tolerated Stand Alone Forms: Patient Portal Discharge page Care Plan Goals: Patient was admitted for acute encephalopathy possible multifactorial-patient has dementia, also had ARSENIO initially and also treated for possible UTI-subsequently patient mental status seems to be improved to baseline as per family. Patient will go home-given the benefit of doubt will treat UTI with p.o. Ceftin for 3 more days. Blood cultures are negative. ARSENIO: Seems to be improved with improving p.o. intake and holding omlesartan: Repeat renal function and electrolytes out patiently in 1 week and consider adding omlesartan if needed for blood pressure outpatient with PCP. hypothyroidism: On thyroid hormone replacement therapy, TSH is 0.11. Monitor TSH level in 1 week outpatient. Health Concerns: as above. Plan of Treatment: As above. Assessment: As above.
[2023-01-20] MEDS: traMADoL HCL 50 MG TABLET PO (15:17)
== END 2023-01-20 15:33 | disposition home or self-care (01) ==
LOC: HO.ED 21:57 → HO.EDOVER 22:49 → HO.S3 01-17 01:27
PROVIDERS: Admitting Provider Student in an Organized Health Care Education/Training Program; Emergency Provider Emergency Medicine; Visit Provider Internal Medicine
DX: G93.41 Metabolic encephalopathy (principal); R41.82 Altered mental status, unspecified; I10 Essential (primary) hypertension; E03.9 Hypothyroidism, unspecified; K21.9 Gastro-esophageal reflux disease without esophagitis; N17.9 Acute kidney failure, unspecified; R19.7 Diarrhea, unspecified; F39 Unspecified mood [affective] disorder; F03.90 Unspecified dementia, unspecified severity, without behavioral disturbance, psychotic disturbance, mood disturbance, and anxiety; Z91.81 History of falling; Z20.822 Contact with and (suspected) exposure to COVID-19; Z79.899 Other long term (current) drug therapy
CPT/HCPCS: 36415; 70450; 70551; 71045; 74018; 80048; 80053; 80307; 81001; 81003; 82140; 82607; 82947; 83605; 84439; 84443; 85025; 85610; 85730; 87040; 87493; 87507; 87635; 93005; 96361; 96365; 96366; 96372; 97116; 97162; 99221; 99285; J0696; J1650

== ENCOUNTER → 2023-01-16 22:42 | Outpatient (BNV) | payer MEDICARE, OTHER, SELFPAY | PROVIDERS: Admitting Provider Student in an Organized Health Care Education/Training Program; Emergency Provider Emergency Medicine; Visit Provider Student in an Organized Health Care Education/Training Program | DX: G93.41 Metabolic encephalopathy (principal) | CPT/HCPCS: 99222; 99233; 99239 ==